=== PATIENT | female | born 1945 | race Caucasian/White ===

== ENCOUNTER 2016-08-30 12:29 | Inpatient (IN) | payer MEDICARE ==
[~2016-08-30] VITALS: Ht 167.6 cm; Wt 65.0 kg
--- NOTE | ~2016-08-30 | HEMODYNAMI ---
PATIENT:SANDRA SCOTT MEDICAL RECORD: [id number] : 45 [id number] ADMISSION DATE: 08/31/16 Generatedon:09/05/201613:26 Patient name: SANDRA SCOTT Patient #: [id number] : 1945 Date of study: 09/05/2016 Page: Of Hemodynamic Procedure Report Patient Data Patient Demographics Procedure consent was obtained First Name: SANDRA Gender: Female Last Name: SONIA : 1945 [facility] Initial: L Age: 70 year(s) Patient #: [id number] Race: Unknown SSN: [id number] Additional ID: [id number] Contact details [address]: [address] [place] [address] State: [place] City: [place] Zip code: [address] Admission Admission Data Admission Date: 08/31/2016 Admission Time: 16:13 Arrival Date: 09/05/2016 Arrival Time: 0:00 Admit Source: Other Insurance Payor: Medicare Room #: D.2130 Height (in.): 65.75 BSA: 1.73 (m2) Height (cm.): 167 BMI: 23.31 (kg/m2) Weight (lbs.): 143.3 Weight (kg.): 65 Lab Results Lab Result Date: 09/05/2016 Lab Result Time: 0:00 Biochemistry Name Units Result Min Max BUN mg/dl 20 --(----)*- 7 18 Creatinine mg/dl 0.8 --(-*--)-- 0.6 1.3 CBC Name Units Result Min Max Hemoglobin g/dl 11.5 *-(----)-- 13.5 17.5 Procedure Procedure Types Cath Procedure Diagnostic Procedure [facility] w/Coronaries Miscellaneous Procedures Procedure Description Procedure Date Procedure Date: 09/05/2016 Procedure Start Time: 13:01 Procedure End Time: 13:25 Procedure Staff Name Function Jaime Chavez MD Performing Physician Awa Leyva RN Nurse Karol Pablo RT Monitor Opal Man RT Scrub Nelson Mcbride [facility] Consultant Procedure Data Cath Procedure Fluoroscopy Diagnostic fluoroscopy Total fluoroscopy Time: 4.3 time: 4.3 min min Diagnostic fluoroscopy Total fluoroscopy dose: 209 dose: 209 mGy mGy Contrast Material Contrast Material Type Amount (ml) Isovue 300 88 Entry Location Entry Primary Successful Side Size Upsize Upsize Entry Closure Succes sful Closure Location (Fr) 1 (Fr) 2 (Fr) Remarks Device Remarks Femoral Right 5 Fr 6 Fr Vascade artery Short Closure System Estimated blood loss: 10 ml Diagnostic catheters Device Type Used For End Catheter Placement Cordis 5Fr Pigtail Procedure Catheter (MP) Cordis 5Fr JL 4.0 Procedure Catheter (MP) Cordis 5Fr 3DRC Catheter Procedure (MP) Procedure Complications No complications Procedure Medications Medication Administration Route Dosage Oxygen NC 2 l/min Heparin Flush Bag added to field 2 bags (1000units/500ml NS) Lidocaine 2% added to field 20 Solumedrol I.V. 125 mg Fentanyl I.V. 50 mcg Versed I.V. 1 mg Heparin Bolus I.V. 4000 units Hemodynamics Rest BSA: 1.73 (m2) HGB: 11.5 (g/dl) O2 Consumption: Estimated: 169.44 (ml/min) O2 Co nsumption indexed: Estimated:97.94 (ml/min/m) Heart Rate: 85 (bpm) Snapshots Pre Cath Intra NCS Post Cath Vital Signs Time Heart Resp SPO2 NIBP (mmHg) Rhythm Pain Sedation Rate (ipm) (%) Status Level (bpm) 12:48:25 82 18 95 166/92(140) NSR 0 (11) 10(A) , No pain 12:53:01 82 16 95 177/94(137) NSR 0 (11) 10(A) , No pain 12:57:44 80 16 96 161/86(123) NSR 0 (11) 9(A) , No pain 13:02:21 75 18 96 150/76(122) NSR 0 (11) 9(A) , No pain 13:06:53 73 17 95 145/70(129) NSR 0 (11) 9(A) , No pain 13:11:28 55 18 95 136/63(102) NSR 0 (11) 9(A) , No pain 13:15:56 52 17 95 124/60(107) NSR 0 (11) 9(A) , No pain 13:20:20 61 20 96 124/71(106) NSR 0 (11) 9(A) , No pain 13:24:46 78 21 137/72(109) NSR 0 (11) 9(A) , No pain Medications Time Medication Route Dose Verified Delivered Reason Notes Effectiveness by by 12:57:00 Oxygen NC 2 Awa Awa used for l/min Leyva Leyva warper tender RN 12:57:08 Heparin Flush added 2 Awa Awa used for Bag to bags Leyva Leyva procedure (1000units/500ml field RN RN NS) 12:57:19 Lidocaine 2% added 20ml Awa Awa used for to vial Leyva Leyva procedure field RN RN 12:57:30 Solumedrol I.V. 125 Awa Awa Per physician mg Gordon Leyva RN RN 13:01:36 Fentanyl I.V. 50 Awa Awa for sedation mcg Gordon Leyva RN RN 13:01:41 Versed I.V. 1 mg Awa Awa for sedation Leyva Leyva RN RN 13:08:36 Heparin Bolus I.V. 4000 Awa Awa for units Leyva Leyva anticoagulation RN agricultural services director Log Time Note 12:23:40 Nelson Mcbride RT(R) sent for patient. Start room use. 12:23:41 Time tracking: Regular hours 12:23:45 Plan of Care:Hemodynamics will remain stable., Cardiac rhythm will remain stable., Comfort level will be maintained., Respiratory function will remain adequate., Patient/ family verbilizes understanding of procedure., Procedure tolerated without complication., Recovers from procedure without complications.. 12:32:45 Lab Result : Creatinine 0.8 mg/dl 12:32:45 Lab Result : BUN 20 mg/dl 12:32:45 Lab Result : Hemoglobin 11.5 g/dl 12:33:52 Patient Height : 167 inches 12:34:04 Patient Weight : 65 lbs 12:34:14 Admit Source: Other 12:34:18 Arrival Date: 09/05/2016 12:00:00 AM 12:34:32 Insurance Payor : Medicare 12:34:57 Procedure type changed to Cath procedure, Diagnostic procedure, LHC, LHC w/Coronaries, Miscellaneous Procedures 12:39:21 Patient received from Med II to CCL 3 Alert and oriented. Tansferred to table in Supine position. 12:39:23 Warm blankets applied, and jacquelyn hugger turned on for patient comfort. 12:39:23 Correct patient and procedure confirmed by team. 12:39:36 H&P Date Dictated: 09/04/2016 Within 30 days and on chart.. 12:39:41 Pre-procedure instructions explained to patient. 12:39:43 Pre-op teaching completed and patient verbalized understanding. 12:39:44 Family in waiting room. 12:39:47 Patient NPO since Midnight. 12:39:52 Is the patient allergic to Iodine/contrast media? Yes. 12:39:53 Was the patient premedicated? Yes 12:46:54 Signed procedure consent form obtained from patient. 12:46:55 ECG and BP/O2 sat monitors applied to patient. 12:46:55 Vital chart was started 12:47:00 Baseline sample Acquired. 12:47:05 Rhythm: sinus rhythm 12:47:06 Full Disclosure recording started 12:47:10 Is patient on blood thinner?Yes 12:47:17 ACC The patient was administered the following blood thiners within the last 24 hours: ACCPlavix 12:47:24 Patient diabetic? Yes. 12:47:27 If diabetic: On Metformin? Unknown 12:47:29 Patient not . Patient is over age 55. 12:47:33 Previous problem with sedation/anesthesia? No ? 12:47:34 Snore? Yes 12:47:35 Sleep apnea? No 12:47:36 Deviated septum? No 12:47:37 Opens mouth fully? Yes 12:47:39 Sticks out tongue? Yes 12:47:42 Airway obstruction? No ? 12:47:45 Dentures? Yes OUT 12:47:50 Pre procedure: right dorsailis pedis pulse Doppler 12:48:01 Patient pain scale 0/10 ?. 12:52:04 IV patent on arrival in left forearm with 0.9% NaCl at KVO. 12:52:08 Lab results completed and on chart. 12:52:13 Bilateral groins area was prepped with chlora-prep and draped in sterile fashion 12:52:14 Alarms reviewed by R. N. 12:52:15 Sharps counted by scrub and verified by R.N. ::18 --------ALL STOP TIME OUT------ ::18 Final Timeout: patient, procedure, and site verified with staff and physician. All members of the team are in agreement. 12:52:20 Bilateral groins site verified by team. 12::25 Physical assessment completed. ASA score P 2 - A patient with mild systemic disease as per Jaime Chavez MD. 12:52:28 Sedation plan: IV Moderate Sedation Versed, Fentanyl 12:52:40 Use device set Femoral Dx 12:52:42 Tegaderm 4 x 4 opened to sterile field. 12:52:44 Acist Manifold opened to sterile field. 12:52:45 Acist Hand Control opened to sterile field. 12:52:46 Acist Syringe opened to sterile field. 12:52:46 Bag Decanter opened to sterile field. 12:52:46 Medline Cath Pack opened to sterile field. 12:52:47 Terumo 5Fr Wheelwright Sheath opened to sterile field. 12:52:47 St Shakeel 260cm J .035 wire opened to sterile field. 12:52:49 Diagnostic Infinity 5Fr Multipack catheter opened to sterile field. 12:57:00 Oxygen 2 l/min NC was given by Awa Leyva RN; used for procedure; 12:57:08 Heparin Flush Bag (1000units/500ml NS) 2 bags added to field was given by Awa Leyva RN; used for procedure; 12:57:19 Lidocaine 2% 20ml vial added to field was given by Awa Leyva RN; used for procedure; 12:57:30 Solumedrol 125 mg I.V. was given by Awa Leyva RN; Per physician; 13:00:26 Zero performed for pressure channel P1 13:01:36 Fentanyl 50 mcg I.V. was given by Awa Leyva RN; for sedation; 13:01:41 Versed 1 mg I.V. was given by Awa Leyva RN; for sedation; 13:01:47 Procedure started. 13:01:59 Local anesthetic to right femoral artery with Lidocaine 2% by Jaime Chavez MD.INITIAL ACCESS ONLY 13:02:11 A 5 Fr sheath was inserted into the Right Femoral artery 13:02:47 A Cordis 5Fr Pigtail Catheter (MP) was advanced over the wire and used for Procedure. 13:02:50 LV gram done using WEAVER 13:03:09 EF : 60 % 13:04:00 LCA angiography performed. 13:04:01 Bilateral illiacs angiography performed. 13:04:21 Catheter removed. 13:04:29 A Cordis 5Fr JL 4.0 Catheter (MP) was advanced over the wire and used for Procedure. 13:05:05 Catheter removed. 13:05:15 A Cordis 5Fr 3DRC Catheter (MP) was advanced over the wire and used for Procedure. 13:06:20 RCA angiography performed. 13:06:58 Catheter removed. 13:07:03 Terumo 6Fr Wheelwright Sheath opened to sterile field. 13:07:04 Simmons Whisper J 300cm 0.014 guide wire opened to sterile field. 13:07:05 Message[employer]Com[employer] International Inflation Kit opened to sterile field. 13:07:17 Sheath upsized to a 6 Fr Short. 13:08:36 Heparin Bolus 4000 units I.V. was given by Awa Leyva RN; for anticoagulation; 13:08:57 Medtronic Launcher 6Fr EBU 4.0 guide catheter opened to sterile field. 13:09:10 6 Fr EBU 4 guide catheter was inserted over the wire 13:09:18 Catheter removed. unable to cannulate vessel. 13:09:37 Medtronic Launcher 6Fr EBU 3.5 guide catheter opened to sterile field. 13:10:05 Whisper wire advanced. 13:10:07 Wire advanced across lesion. 13:11:17 Inflation Number: 1 A Medtronic Integrity 3.5 X 18 stent was prepped and advanced across the Mid CX. The stent was deployed at 13 ALEAH for 0:10 (min:sec). 13:12:00 Vascade 6/7 Fr Closure Device opened to sterile field. 13:12:09 Stent catheter was removed intact over wire. 13:12:09 Wire removed. 13:12:10 Guide catheter removed. 13:12:23 Sheath removed intact; hemostasis achieved with Vascade Closure System to the Right Femoral artery. 13:14:26 Procedure ended.(Physican Out) 13:15:09 Fluoroscopy time 04.30 minutes. 13:15:14 Fluoroscopy dose: 209 mGy 13:15:14 Flurop Dose total: 209 13:15:19 Contrast amount:Isovue 300 88ml. 13:15:21 Sharps counted by scrub and verified by R.N. 13:15:26 Insertion/operative site no bleeding no hematoma. 13:15:29 Post right femoral artery:stable 13:15:31 Post Procedure Pulses reassessed and unchanged 13:15:40 Post-procedure physical assessment completed. ASA score P 2 - A patient with mild systemic disease as per Jaime Chavez MD. 13:16:06 Post procedure rhythm: sinus bradycardia 13:16:09 Estimated blood loss: 10 ml 13:16:10 Post procedure instruction explained to patient.Patient verbalizes understanding. 13:16:12 Patient needs reinforcement of post procedure teaching. 13:18:28 Procedure and supply charges have been captured, reviewed, submitted and are correct. 13:24:59 Procedure Complication : No complications 13:25:02 Vital chart was stopped 13:25:03 See physician's report for complete and final results. 13:25:07 Report given to [facility]. 13:25:12 Patient transfered to [facility] with Bed. 13:25:14 Procedure ended. 13:25:14 Full Disclosure recording stopped 13:25:20 End room use (Document Last) 13:25:30 Femstop placed over the right femoral artery at 120 mmHg. Hemostasis achieved. Intervention Summary Intervention Notes Time ActionType Lesion and Equipment Action# Pressure Duration Attributes Used 13:11:17 Place stent Mid CX Medtronic 1 13 00:10 Integrity 3.5 X 18 stent Device Usage Item Name Manufacture Quantity Catalog Hospital Part Current Minima l Lot# / Number Charge Number Stock Stock Serial# Code Tegaderm 4 1 [id number] 156751 5 x 4 Acist Acist 1 54741 978505 223166 660141 5 Manifold Medical Systems Inc Acist Hand Acist 1 07266 024412 859264 792821 5 Control Medical Systems Inc Acist Acist 1 83128 193271 321807 986948 20 Syringe Medical Systems Inc Bag Microtek 1 2002S 189657 57062 656290 5 Thomas [employer]. Medline Cardinal 1 [id number] 444793 07978 834200 5 D-Share Terumo 5Fr Terumo 1 [id number] 531685 034370 628733 [address] Shakeel 1 628939 761171 831262 767047 30 260cm J .035 wire Diagnostic Cardinal 1 [id number] 166122 84427 590674 30 Infinity Health 5Fr Multipack catheter Cordis 5Fr Cardinal 1 152051 5 Pigtail Health Catheter (MP) Cordis 5Fr Cardinal 1 [id number] 5 JL 4.0 Health Catheter (MP) Cordis 5Fr Cardinal 1 640533 5 3DRC Health Catheter (MP) Terumo 6Fr Terumo 1 DCS100 512082 490488 491166 40 Wheelwright Sheath Simmons Simmons 1 [id number] 292570 626769 047313 5 Whisper J Vascular 300cm 0.014 guide wire [facility] 1 [id number] 715748 196646 287892 15 [employer] Medical Inflation Kit Medtronic Medtronic 1 [id number] 674863 55641 656744 1 Launcher 6Fr EBU 4.0 guide catheter Medtronic Medtronic 1 [id number] 746235 00463 969525 3 Launcher 6Fr EBU 3.5 guide catheter Medtronic Medtronic 1 [id number] 885293 984005 6 [id number] Integrity 3.5 X 18 stent Vascade 6/7 Cardiva 1 [id number] 157387 204234 096534 5 Fr Closure Medical, Device Inc. Signature Audit [place] Stage Time Signature Unsigned Intra-Procedure 09/05/2016 Opal Man 1:26:23 PM RT(R) Signatures Monitor : Karol Pablo RT Signature : Date : Time : [place] [id number] [place] [address]
--- NOTE | ~2016-08-30 | HEMODYNAMI ---
PATIENT:SANDRA SCOTT MEDICAL RECORD: [id number] : 45 [id number] ADMISSION DATE: 08/31/16 Generatedon:09/06/201611:32 Patient name: SANDRA SCOTT Patient #: [id number] : 1945 Date of study: 09/06/2016 Page: Of Hemodynamic Procedure Report Patient Data Patient Demographics Procedure consent was obtained First Name: SANDRA Gender: Female Last Name: SONIA : 1945 [facility] Initial: L Age: 70 year(s) Patient #: [id number] Race: Unknown SSN: [id number] Additional ID: [id number] Contact details Address: [address] [place] [address] State: [place] City: [place] Zip code: [address] Admission Admission Data Admission Date: 08/31/2016 Admission Time: 16:13 Arrival Date: 09/05/2016 Arrival Time: 0:00 Admit Source: Other Insurance Payor: Medicare Room #: D.2130 Height (in.): 65.75 BSA: 1.73 (m2) Height (cm.): 167 BMI: 23.31 (kg/m2) Weight (lbs.): 143.3 Weight (kg.): 65 Lab Results Lab Result Date: 09/06/2016 Lab Result Time: 4:56 Biochemistry Name Units Result Min Max BUN mg/dl 21 --(----)-* 7 18 Creatinine mg/dl 0.7 --(*---)-- 0.6 1.3 CBC Name Units Result Min Max Hematocrit % 33.7 *-(----)-- 42 54 Hemoglobin g/dl 10.9 *-(----)-- 13.5 17.5 Procedure Procedure Types Cath Procedure PCI Procedure Coronary Stent Initial Miscellaneous Procedures Moderate Sedation up to 15 minutes Procedure Description Procedure Date Procedure Date: 09/06/2016 Procedure Start Time: 11:17 Procedure End Time: 11:31 Procedure Staff Name Function Jaime Chavez MD Performing Physician Nic Lino RT Scrub Fredrick Juarez RN Nurse Kesha Syed RT Monitor Procedure Data Cath Procedure Fluoroscopy Diagnostic fluoroscopy Total fluoroscopy dose: 142 dose: 142 mGy mGy Contrast Material Contrast Material Type Amount (ml) Isovue 300 32 Entry Location Entry Primary Successful Side Size Upsize Upsize Entry Closure Succes sful Closure Location (Fr) 1 (Fr) 2 (Fr) Remarks Device Remarks Femoral Left 6 Fr Vascade artery Short Closure System Estimated blood loss: 10 ml Procedure Complications No complications Procedure Medications Medication Administration Route Dosage Oxygen NC 3 l/min Lidocaine 2% added to field 20 Heparin Flush Bag added to field 2 bags (1000units/500ml NS) 0.9% NaCl I.V. 100 ml/hr Versed I.V. 1 mg Fentanyl I.V. 50 mcg Heparin Bolus I.V. 4000 units Hemodynamics Rest BSA: 1.73 (m2) O2 Consumption: Estimated: 235.28 (ml/min) O2 Consumption indexed : Estimated:136 (ml/min/m) Pre Cath Intra NCS Post Cath Vital Signs Time Heart Resp SPO2 etCO2 [id number] NIBP (mmHg) Rhythm Pain Sedation Rate (ipm) (%) (mmHg) (mmHg) Status Level (bpm) 11:08:47 86 27 98 0 0 183/89(140) NSR 0 (11) 10(A) , No pain 11:13:11 88 20 97 0 0 181/90(142) NSR 0 (11) 10(A) , No pain 11:17:38 83 18 98 0 0 179/88(145) NSR 0 (11) 9(A) , No pain 11:22:04 83 16 98 0 0 170/83(134) NSR 0 (11) 9(A) , No pain 11:26:26 97 22 96 0 0 166/78(127) NSR 0 (11) 9(A) , No pain 11:30:46 83 25 96 0 0 157/83(128) NSR 0 (11) 10(A) , No pain Medications Time Medication Route Dose Verified Delivered Reason Notes Effectiveness by by 11:11:02 Oxygen NC 3 Jaime Alcala used for l/min Scott Juarez marine engineering technicians 11:11:09 Lidocaine 2% added 20ml Jaime Sandoval for local to vial Scott Chavez MD anesthetic field 11:11:14 Heparin Flush added 2 Jaime Sandoval used for Bag to bags Scott Chavez MD procedure (1000units/500ml field NS) 11:11:23 0.9% NaCl I.V. 100 Jaime Duenaspatricia Per physician ml/hr Scott Juarez RN 11:14:47 Versed I.V. 1 mg Jaime Alcala for sedation Scott Juarez RN 11:14:54 Fentanyl I.V. 50 Jaime Buffie for sedation mcg Scott Jaurez RN 11:19:48 Heparin Bolus I.V. 4000 Jaime Duenasie for verifi ed units Scott Juarez RN anticoagulation with dr chavez Procedure Log Time Note 10:45:55 Informed consent obtained and on chart 10:46:23 Patient Weight : 143.3 lbs 10:46:23 Patient Height : 65.75 inches 10:46:24 Fredrick Juarez RN sent for patient. Start room use. 10:46:25 Time tracking: Regular hours 10:46:29 Plan of Care:Hemodynamics will remain stable., Cardiac rhythm will remain stable., Comfort level will be maintained., Respiratory function will remain adequate., Patient/ family verbilizes understanding of procedure., Procedure tolerated without complication., Recovers from procedure without complications.. 10:50:28 Lab Result : BUN 21 mg/dl 10:50:28 Lab Result : Hematocrit 33.7 % 10:50:28 Lab Result : Hemoglobin 10.9 g/dl 10:50:28 Lab Result : Creatinine 0.7 mg/dl 10:50:47 H&P Date Dictated: 09/05/2016 Within 30 days and on chart.. 10:56:36 Patient received from PCU to CCL 1 Alert and oriented. Tansferred to table in Supine position. 10:56:37 Warm blankets applied, and jacquelyn hugger turned on for patient comfort. 10:56:38 Correct patient and procedure confirmed by team. 11:07:32 ECG and BP/O2 sat monitors applied to patient. 11:07:32 Vital chart was started 11:07:36 Rhythm: sinus rhythm 11:07:37 Full Disclosure recording started 11:07:40 Pre-op teaching completed and patient verbalized understanding. 11:07:41 Pre-procedure instructions explained to patient. 11:07:44 Family in patients room. 11:07:46 Patient NPO since Midnight. 11:07:58 Is the patient allergic to Iodine/contrast media? Yes. 11:07:59 Was the patient premedicated? Yes 11:08:01 Is patient on blood thinner?Yes 11:08:04 ACC The patient was administered the following blood thiners within the last 24 hours: ACCPlavix 11:08:37 Patient diabetic? Yes. 11:08:46 If diabetic: On Metformin? No 11:09:04 Previous problem with sedation/anesthesia? No ? 11:09:06 Snore? Yes 11:09:07 Sleep apnea? No 11:09:08 Deviated septum? No 11:09:10 Opens mouth fully? Yes 11:09:10 Sticks out tongue? Yes 11:09:12 Airway obstruction? No ? 11:09:14 Dentures? No ? 11:09:19 Pre procedure: left dorsailis pedis pulse Doppler 11:09:23 Patient pain scale 0/10 ?. 11:09:30 IV patent on arrival in right forearm with 0.9% NaCl at [facility]. 11:09:35 Lab results completed and on chart. 11:09:38 Left groin area was prepped with chlora-prep and draped in sterile fashion 11:09:39 Alarms reviewed by R. N. 11:09:39 Sharps counted by scrub and verified by R.N. 11:09:52 Use device set Femoral PCI 11:09:53 Acist Syringe opened to sterile field. 11:09:54 Acist Hand Control opened to sterile field. 11:09:54 Bag Decanter opened to sterile field. 11:09:55 Medline Cath Pack opened to sterile field. 11:09:55 Terumo 6Fr [place] Sheath opened to sterile field. 11:09:56 St Shakeel 260cm J .035 wire opened to sterile field. 11:09:56 Merit BasixCompak Inflation Kit opened to sterile field. 11:09:57 Acist Manifold opened to sterile field. 11:09:57 Tegaderm 4 x 4 opened to sterile field. 11:11:02 Oxygen 3 l/min NC was given by Fredrick Juarez RN; used for procedure; 11:11:09 Lidocaine 2% 20ml vial added to field was given by Jaime Chavez MD; for local anesthetic; 11:11:14 Heparin Flush Bag (1000units/500ml NS) 2 bags added to field was given by Jaime Chavez MD; used for procedure; 11:11:23 0.9% NaCl 100 ml/hr I.V. was given by Fredrick Juarez RN; Per physician; 11:11:37 Final Timeout: patient, procedure, and site verified with staff and physician. All members of the team are in agreement. 11:11:39 Left groin site verified by team. 11:11:41 Physical assessment completed. ASA score P 3 - A patient with severe systemic disease as per Jaime Chavez MD. 11:11:44 Sedation plan: IV Moderate Sedation Versed, Fentanyl 11:14:47 Versed 1 mg I.V. was given by Fredrick Juarez RN; for sedation; 11:14:54 Fentanyl 50 mcg I.V. was given by Fredrick Juarez RN; for sedation; 11:15:03 Procedure started. 11:17:25 Local anesthetic to left femerol artery with Lidocaine 2% by Jaime Chavez MD.INITIAL ACCESS ONLY 11:18:35 A 6 Fr Short sheath was inserted into the Left Femoral artery 11:19:39 6 Fr EBU 3.0 guide catheter was inserted over the wire 11:19:47 Medtronic Launcher 6Fr EBU 3.0 guide catheter opened to sterile field. 11:19:48 Heparin Bolus 4000 units I.V. was given by Fredrick Juarez RN; for anticoagulation; verified with dr chavez 11:20:47 Whisper wire advanced. 11:23:38 Inflation Number: 1 A Medtronic Integrity 2.5 X 26 stent was prepped and advanced across the Prox LAD. The stent was deployed at 13 ALEAH for 0:04 (min:sec). 11:24:19 Stent catheter was removed intact over wire. 11:24:20 Wire removed. 11:24:20 Guide catheter removed. 11:24:28 Sheath removed intact; hemostasis achieved with Vascade Closure System to the Left Femoral artery. 11:24:36 Vascade 6/7 Fr Closure Device opened to sterile field. 11:24:46 Procedure ended.(Physican Out) 11:26:57 Flurop Dose total: 142 11:26:57 Fluoroscopy dose: 142 mGy 11:27:01 Contrast amount:Isovue 300 32ml. 11:27:03 Sharps counted by scrub and verified by R.N. 11:27:06 Insertion/operative site no bleeding no hematoma. 11:27:09 Post-op/insertion site Left Femoral artery dressed using a 4 x 4 and Tegaderm. 11:27:19 Post left femerol artery:stable, clean and dry 11:27:20 Post Procedure Pulses reassessed and unchanged 11:27:24 Post-procedure physical assessment completed. ASA score P 3 - A patient with severe systemic disease as per Jaime Chavez MD. 11:27:26 Post procedure rhythm: unchanged. 11:27:29 Estimated blood loss: 10 ml 11::34 Post procedure instruction explained to patient.Patient verbalizes understanding. 11:27:35 Patient needs reinforcement of post procedure teaching. 11:27:43 Procedure type changed to Cath procedure, PCI procedure, Coronary Stent Initial, Miscellaneous Procedures, Moderate Sedation up to 15 minutes 11:27:52 Procedure Complication : No complications 11:27:56 See physician's report for complete and final results. 11:28:39 Simmons Whisper J 300cm 0.014 guide wire opened to sterile field. 11:28:56 Procedure and supply charges have been captured, reviewed, submitted and are correct. 11:29:00 Report given to PCU. 11:31:34 Vital chart was stopped 11::38 Patient transfered to PCU with Bed. 11:31:45 Procedure ended. 11:31:45 Full Disclosure recording stopped 11::51 End room use (Document Last) Intervention Summary Intervention Notes Time ActionType Lesion and Equipment Action# Pressure Duration Attributes Used 11:23:38 Place stent Prox LAD Medtronic 1 13 00:04 Integrity 2.5 X 26 stent Device Usage Item Name Manufacture Quantity Catalog Hospital Part Current Minima l Lot# / Number Charge Number Stock Stock Serial# Code Acist Acist 1 81842 499591 490949 980977 20 Syringe Medical Systems Inc Acist Hand Acist 1 74003 999455 693186 698441 5 Control Medical Systems Inc Bag Microtek 1 2002S 823400 45907 750197 5 Segterra (InsideTracker). Medline Cardinal 1 [id number] 581033 01371 148493 5 Cath Pack Health Terumo 6Fr Terumo 1 [id number] 943977 246012 693651 [address] St Shakeel 1 407047 912478 978254 999907 30 260cm J .035 wire Merit Merit 1 [id number] 393750 328715 321557 15 eASIC Medical Inflation Kit Acist Acist 1 79312 181806 639622 492057 5 Gopeers Medical Systems Inc Tegaderm 4 3M 1 1626W 060709 045124 047669 5 x 4 Medtronic Medtronic 1 [id number] 651796 67048 042714 0 Launcher 6Fr EBU 3.0 guide catheter Medtronic Medtronic 1 [id number] 363357 364511 760246 4 [id number] Integrity 2.5 X 26 stent Vascade 12/20 Cardiva 1 [id number] 039881 415899 249747 5 Fr Closure Medical, Device Inc. Simmons Simmons 1 [id number] 561371 643387 542237 5 isper J Vascular 300cm 0.014 guide wire Signature Audit Hawkins Stage Time Signature Unsigned Intra-Procedure 09/06/2016 Kesha 11:32:01 AM Counts RT(R) Signatures Monitor : Kesha Signature : Counts RT Date : Time : [id number] [place] [address]
[~2016-08-30 12:29] MED LIST: ATROVENT 0.02%2.5 ML UPD; BENICAR40 MG PO; BUPRENORPHI0.3 MG/ML IV; CARDIZEM CD180 MG PO; CARDIZEM60 MG PO; CARTIA XT180 MG PO; CATAPRES0.2 MG PO; CIPRO500 MG PO; CORDARONE200 MG PO; DAKIN'S 0.125%480 ML TP; DEXTROSE 50%/WA50 ML IV; DIFLUCAN100 MG PO; FELODIPINE ER10 MG PO; GLUCAGON1 MG/KIT IM; GLUCAGON1 MG/KIT SQ; HUMALOG 30100 UNITS/ SC; HUMULIN N100 U/ML SC; INSTA-GLUCOSE31 GM PO; INVANZ1 G/VIAL IV; K-DUR20 MEQ PO; KEFLEX500 MG PO; KLOR-CON M2020 MEQ PO; LANTUS SOL100 UNIT/1 SQ; LASIX80 MG PO; LEVAQUIN 5500 MG/100 IV; LOPRESSOR50 MG PO; LOVENOX40 MG/0.4 SQ; MACROBID100 MG PO; MAG-OXIDE400 MG PO; MELATONIN 3 MG1 TAB PO; MIRALAX17 GM PO; NORCO 10/325 TA1 TA1 PO; ONDANSETRON4 MG/2 M3 IV; PEDI DRI TP; PEPCID20 MG PO; POTASSIUM20 MEQ/15 PO; PRAVACHOL40 MG PO; PROTONIX 40 MG40 MG PO; SANTYL30 GM TP; SODIUM CL 0.91000 ML IV; STERAPRED 5MG 125 MG PO; TRANDATE300 MG PO; TYLENOL 325 MG325 MG PO; TYLENOL650 MG RC; XANAX1 MG PO; ZESTRIL40 MG OR; ZESTRIL40 MG PO; ZINC OXIDE 20 %30 GM TP
[2016-08-30 14:10] LABS: BASOPHILS 0.1 % (0.0-2.0); EOSINOPHILS 0 % (0-7); HEMATOCRIT 47.3 % (36.0-48.0); HEMOGLOBIN 15.8 g/dL (12-16); IMMATURE GRANULOCYTES 0.2 % (0-5); LYMPHOCYTES 3.6 % (15-50); MCH 31.7 pg (26.0-34.0); MCHC 33.4 g/dL (31.0-37.0); MEAN PLATELET VOLUME 11.7 fL (7.4-10.4); MONOCYTES 9.8 % (2-11); NEUTROPHILS 86.3 % (40-80); PLATELET COUNT 264 10x3/uL (130-400); RBC 4.98 10x6/uL (4.00-5.40); RDW 12.8 % (11.5-14.5); WBC 18.4 10x3/uL (4.8-10.8)
[2016-08-30 14:26] LABS: ALBUMIN 3.9 g/dL (3.4-5.0); ANION GAP 20.5 mmol/L (8-16); BILIRUBIN - TOTAL 0.54 mg/dL (0.2-1.3); CALCIUM 9.3 mg/dL (8.5-10.1); CARBON DIOXIDE 23.1 mmol/L (21.0-32.0); CREATININE - SERUM 1.4 mg/dL (0.6-1.3); POTASSIUM - SERUM 3.6 mmol/L (3.5-5.1); PROTEIN - SERUM 7.7 g/dL (6.4-8.2)
[2016-08-30 14:53] LABS: APPEARANCE HAZY (CLEAR); BILIRUBIN NEGATIVE (NEGATIVE); COLOR DK YELLOW (YELLOW); GLUCOSE NEGATIVE (NEGATIVE); KETONE SMALL mg/dL (NEGATIVE); LEUKOCYTE ESTERASE TRACE (NEGATIVE); NITRITE NEGATIVE (NEGATIVE); PROTEIN 1+ mg/dL (NEGATIVE); SPECIFIC GRAVITY 1.005 (1.005-1.020); UROBILINOGEN NORMAL (NORMAL)
[2016-08-30 14:54] LABS: BACTERIA MANY /hpf (NONE SEEN); EPITHELIAL CELLS 0-5 /hpf (0-5); MUCUS >1+ /lpf (NONE SEEN)
[2016-08-30 17:31] LABS: CKMB 1.3 U/L (0.0-3.6); CREATINE KINASE 46 UL (21-215)
--- NOTE | 2016-08-30 18:35 | NUR ---
RECEIVED PATIENT FROM ED VIA STRETCHER ACCOMPANIED BY FAMILY. TRANSFERRED TO BED AND CLEANED OF INCONTINENT STOOL. WILL CONTINUE TO MONITOR.
--- NOTE | 2016-08-30 20:00 | NUR ---
ADMISSION ASSESSMENT COMPLETED. IV ROCEPHIN NOW UP AND INFUSING. 2ND UNIT OF LR NOW UP. CALL LIGHT IN REACH. DENIES PAIN.
[2016-08-30 20:04] VITALS: BP 193/82
--- NOTE | 2016-08-30 21:19 | NUR ---
RECIEVED CALL FROM ER MARQUIS SAYING THAT SHE NOTED PT'S LACTIC ACID HAD INCREASED FROM 3.7 TO 4.1 AND MD NEEDED TO BE NOTIFIED THAT PT'S LEVEL HAD ELEVATED AND THAT PT WAS SEPTIC. EXPLAINED TO MARQUIS THAT PT IS NOW RECIEVEING HER INITIAL ABT AND ORDERED FLUIDS. WILL NOTIFY MD IF THERE ARE ANY CHANGES. SPOKE WITH TATUM, PUTTY MIXER, ABOUT CALL FROM MARQUIS STATING TO NOTIFY MD THAT PT WAS SEPTIC. OUR RECORDS INDICATE THAT DR BAUM SAW PT AND DID HISTORY AND PHYSICAL. OKAYED BY PUTTY MIXER TO HOLD OFF CALLING MD PER REQUEST OF MARQUIS AND CONTINUE TO IMPLEMENT THE ESTABLISHED PLAN OF CARE.
[2016-08-30 23:34] LABS: CKMB 1.6 U/L (0.0-3.6); CREATINE KINASE 63 UL (21-215)
[2016-08-30 23:38] LABS: TROPONIN-I 0.063 ng/mL (0.000-0.060)
[2016-08-31] VITALS (7 sets, daily range): BP systolic 155–246; BP diastolic 73–97; Ht 167.6 cm; Wt 65.0 kg
--- NOTE | 2016-08-31 02:30 | NUR ---
BP CONTINUES TO STAY ELEVATED. SPOKE WITH PATIENT AND SHE HAS NOT HAD ANY OF HER CLONIDINE ALL DAY. PAGE TO FABIAN LOUISE APN @ 2982 PT'S SENIOR CATHETER WAS NO LONGER PATENT. REMOVED AND INSERTED NEW 18F SENIOR WITH IMMEDIATE RETURN OF YELLOW URINE. COMPLETE BED BATH GIVEN. PT PULLED OUT IV IN RIGHT HAND. SITED NEW IV TO ANOTHER SITE ON RIGHT HAND AND RESUMMED IVF OF LR BOLUS, HAVING TO SLOW IT DOWN DUE TO IV IN FINGER. IV WILL BE SALINE LOCKED WHEN THE CURRENT BAG OF LR IS COMPLETE.
[2016-08-31 06:28] LABS: BASOPHILS 0.1 % (0.0-2.0); EOSINOPHILS 0 % (0-7); HEMATOCRIT 40.3 % (36.0-48.0); HEMOGLOBIN 13.4 g/dL (12-16); IMMATURE GRANULOCYTES 0.2 % (0-5); LYMPHOCYTES 11.9 % (15-50); MCH 31.2 pg (26.0-34.0); MCHC 33.3 g/dL (31.0-37.0); MCV 93.7 fL (80.0-100.0); MEAN PLATELET VOLUME 11.7 fL (7.4-10.4); MONOCYTES 10.7 % (2-11); NEUTROPHILS 77.1 % (40-80); RDW 12.9 % (11.5-14.5)
[2016-08-31 06:32] LABS: PLATELET COUNT 193 10x3/uL (130-400); WBC 13.3 10x3/uL (4.8-10.8)
[2016-08-31 06:47] LABS: ANION GAP 13.8 mmol/L (8-16); CALCIUM 9.8 mg/dL (8.5-10.1); CARBON DIOXIDE 26.9 mmol/L (21.0-32.0); POTASSIUM - SERUM 3.7 mmol/L (3.5-5.1)
[2016-08-31 06:58] LABS: CKMB 1.2 U/L (0.0-3.6); CREATINE KINASE 56 UL (21-215); TROPONIN-I 0.062 ng/mL (0.000-0.060)
--- NOTE | 2016-08-31 07:15 | NUR ---
PT SITTING UP IN BED DENEIS NEEDS WILL CONT TO MONITOR
[2016-08-31 07:21] LABS: MAGNESIUM - SERUM 1.8 mg/dL (1.8-2.4); PHOSPHOROUS 2.4 mg/dL (2.5-4.9)
--- NOTE | 2016-08-31 08:30 | NUR ---
PT WITH SOB AND LEAD ORACLE DEVELOPER SAYS PT IS IN UNCON AFIB 150S. PT CO PALPITATIONS. DR GONZALEZ/BOBBY ORDERED CARDIZEM AND LOPRESSOR FOR PT. GIVEN THESE MEDS. PAGED FABIAN PUGA. PT HAS CRACKLES THROUGHOUT AND SOUNDS VERY CONGESTED. FABIAN CALLED BACK AND SAID TO ORDER DUONEBS. I LET HER KNOW ABOUT PT LACTIC ACID LEVEL OF 4.1, UNCON AFIB, AND RESP STATUS. I ORDERED DUONEBS. WILL CONT TO MONITOR PT STATUS.
--- NOTE | 2016-08-31 09:37 | NUR ---
IV access-20 gauge accucath inserted in left upper arm for IV access. Jessica Ramirez RN
--- NOTE | 2016-08-31 10:42 | NUR ---
PT HR STILL IN UNCON AFIB 130S. BOLUS DIDNT HELP MARINA GONZALEZ AGAIN. HE GAVE OK TO START DRIP.
--- NOTE | 2016-08-31 11:37 | NUR ---
PT NOW IN CONTROLLED AFIB. STILL BOUNCING INTO UNCONTROLLED. BUT RATE IS MUCH BETTER CONTROLLED.
--- NOTE | 2016-08-31 12:53 | NUR ---
PT STILL IN CONTROLLED AFIB 80S-90S. PT DENIES NEEDS.
--- NOTE | 2016-08-31 16:29 | NUR ---
PT SITTING UP IN BED WITH AND VISITORS AT BEDSIDE. DENIES NEEDS WILL CONT TO MONITOR.
--- NOTE | 2016-08-31 19:42 | NUR ---
PORCELAIN ENAMEL INSTALLER AT BEDSIDE TO OBTAIN VITALS, CALL LIGHT IN REACH. WILL CONTINUE WITH PLAN OF CARE.
--- NOTE | 2016-08-31 20:06 | NUR ---
RESTING IN BED. ALERT ORIENTED CONVERSANT. DENIES NEEDS. AT BEDSIDE. NO ACUTE DISTRESS NOTED.
[2016-09-01] VITALS: BP 197/94
[2016-09-01 04:00] VITALS: BP 199/84
[2016-09-01 05:20] LABS: BASOPHILS 0.2 % (0.0-2.0); EOSINOPHILS 0.1 % (0-7); HEMATOCRIT 39.6 % (36.0-48.0); IMMATURE GRANULOCYTES 0.4 % (0-5); LYMPHOCYTES 11.2 % (15-50); MCHC 32.8 g/dL (31.0-37.0); MCV 94.3 fL (80.0-100.0); MEAN PLATELET VOLUME 11.4 fL (7.4-10.4); MONOCYTES 8.2 % (2-11); NEUTROPHILS 79.9 % (40-80); PLATELET COUNT 181 10x3/uL (130-400); RDW 12.8 % (11.5-14.5); WBC 12.7 10x3/uL (4.8-10.8)
[2016-09-01 05:50] LABS: CALCIUM 10.1 mg/dL (8.5-10.1); CARBON DIOXIDE 25.2 mmol/L (21.0-32.0); CREATININE - SERUM 0.9 mg/dL (0.6-1.3); MAGNESIUM - SERUM 1.8 mg/dL (1.8-2.4); PHOSPHOROUS 2.6 mg/dL (2.5-4.9); POTASSIUM - SERUM 3.2 mmol/L (3.5-5.1)
--- NOTE | 2016-09-01 07:29 | NUR ---
PT SITTING UP IN BED RECEIVING BREATHING TX WILL CONT TO MONITOR.
[2016-09-01 07:39] LABS: CHOL - HDL RATIO 2.4 ratio (2.3-4.1)
[2016-09-01 10:00] VITALS: BP 198/75
[2016-09-01 11:41] VITALS: BP 134/71
--- NOTE | 2016-09-01 12:37 | NUR ---
CALLED TO PT ROOM BECAUSE PT PIV OCCLUDED. WHEN I CHECKED PT LEFT UPPER FA SITE IT WAS VERY BOGGY. SITE NOT INDURATED, RED. I ASKED PT IF IT HURT SHE SAID YES. I ASKED HER WHY SHE DIDNT CO OF SITE HURTING SOONER SHE REPLIED "I DONT KNOW"... IMMEDIATELY UNHOOKED PIV FLUIDS AND DC PIV WITH CATHETER TIP INTACT AND APPLIED HEAT. PT STILL HAS R INDEX FINGER PIV THAT IS STILL PATENT. SWITCHED FLUIDS TO THIS PIV. I AGAIN EDUCATED PT ON IMPORTANCE OF LETTING ME KNOW WHEN AND IF HER IV EVER HURTS HER AGAIN SO I CAN MAKE SURE IT IS STILL PATENT.
--- NOTE | 2016-09-01 13:55 | NUR ---
ORDER FOR SPECIALTY MATRESS PLACED. CALLED [facility] [employer]. FAXED ORDER DOWN. WILL WAIT FOR THEM TO BRING IT UP
--- NOTE | 2016-09-01 14:51 | NUR ---
PUT PT ON FIRST STEP OVERLAY BED
[2016-09-01 15:43] VITALS: BP 157/77
--- NOTE | 2016-09-01 16:51 | NUR ---
Patient Name: SANDRA SCOTT Admission Status: ER Accout number: [id number] Admission Date: 08-31-2016 : 1945 Admission Diagnosis:BRONCHITIS, NOT SPECIFIED ACUTE OR CHRONIC Attending: BULMARO Current LOS: 1 Anticipated DC Date: Planned Disposition: Home with Home Health Primary Insurance: [facility] PLANNED EXTERNAL PROVIDER: [facility] Discharge Planning Comments: * Is the patient Alert and Oriented? Yes 0 * How many steps to enter\exit or inside your home? RAMP 0 * PCP DR. BAUM 0 * Pharmacy [facility] [address] 0 * Preadmission Environment Home with Family 0 * ADLs Partial Dependent 0 * Partial ADLs (Assistance needed) Bathing Medication Management Transfers 0 * Equipment [facility] Hospital Bed Other Shower Chair Trapeze Wheelchair 0 * Other Equipment [facility] - MEDICAL EQUIPMENT PROVIDER [facility] - HOSPITAL BED PROVIDER 0 * List name and contact numbers for known caregivers / representatives who currently or will assist patient after discharge: TIA SCOTT, SPOUSE, / [phone] 0 * Community resources currently utilized Home Health 0 * Please name any agencies selected above. [facility] 0 * Additional services required to return to the preadmission environment? No 0 * Can the patient safely return to the preadmission environment? Yes 0 * Has this patient been hospitalized within the prior 30 days at any hospital? No 0 CM MET WITH PT AND SPOUSE IN ROOM TO DISCUSS DISCHARGE PLANNING AND NEEDS. PT REPORTS LIVING AT HOME DEPENDENT ON SPOUSE AND ADULT DAUGHTER. PT HAS ALL NEEDED MEDICAL EQUIPMENT PROVIDED BY [employer] [facility] [employer] [facility]. PT HAS HOME HEALTH WITH [facility]. PT REPORTS HER HOSPITAL BED IS BROKEN AND THEY WOULD LIKE A NEW ONE. PT REPORTS HER FAMILY WILL PICK HER UP FOR DISCHARGE HOME. CM CALLED [facility], SPOKE TO ESTER AND WAS ADVISED PT RECEIVED THE HOSPITAL BED IN 2012 AND CANNOT GET ANOTHER ONE THROUGH MEDICARE IT HAS NOT BEEN 5 YEARS; [facility] CAN REPAIR THE BED AND ADVISED THAT PT OR FAMILY CALL FOR REPAIR TICKET. CM ADVISED PT AND SPOUSE, PT'S SPOUSE TO CALL [facility] TO HAVE BED REPAIRED. PT PLANS TO DISCHARGE HOME WITH FAMILY AND HOME HEALTH RESUMPTION. TO RESUME HOME HEALTH AT DISCHARGE, NOTIFY [facility] AT [phone], FAX DISCHARGE INFORMATION TO [facility] AT [phone]. CM TO FOLLOW AND ASSIST NEEDED. Client Advocate: Joey Porter
--- NOTE | 2016-09-01 20:58 | NUR ---
RESUMED CARE OF PT PT ASSESSMENT COMPLETED AND PO HS MEDS ADMIN ORDERED NO DISTRESS OBSERVED AND PT ABLE TO SWALLOW WITH NO DIFFICULTIES. BED LOW AND LOCKED SRX2 RESPERATIONS EVEN AND UNLABORED ON 3LNC PT LAYING ON 1ST STEP OVERLAY WITH CALL LIGHT IN REACH NO DISTRESS OBSERVED WILL MONITOR
[2016-09-01 21:01] VITALS: BP 176/69
--- NOTE | 2016-09-01 23:04 | NUR ---
NOTIFIED FROM ROAD FREIGHT FIRER THAT PT NOW IN FLUTTER RATE 77 CHECKED MONITOR AND 77 FLUTTER SHOWING, PT LAYING IN BED NO DISTRESS OBSERVED WILL MONITOR
[2016-09-02 01:09] VITALS: BP 190/83
[2016-09-02 05:23] VITALS: BP 170/46
[2016-09-02 06:20] LABS: BASOPHILS 0.2 % (0.0-2.0); EOSINOPHILS 0.2 % (0-7); HEMATOCRIT 39.3 % (36.0-48.0); HEMOGLOBIN 13.1 g/dL (12-16); IMMATURE GRANULOCYTES 0.4 % (0-5); LYMPHOCYTES 10.7 % (15-50); MCH 30.7 pg (26.0-34.0); MCHC 33.3 g/dL (31.0-37.0); MEAN PLATELET VOLUME 11.5 fL (7.4-10.4); MONOCYTES 6.8 % (2-11); NEUTROPHILS 81.7 % (40-80); PLATELET COUNT 199 10x3/uL (130-400); RBC 4.27 10x6/uL (4.00-5.40); RDW 12.6 % (11.5-14.5); WBC 13.2 10x3/uL (4.8-10.8)
[2016-09-02 06:21] LABS: CALC OSMOLALITY 283 mosm/kg (275-300); CALCIUM 9.5 mg/dL (8.5-10.1); CARBON DIOXIDE 23.1 mmol/L (21.0-32.0); CHLORIDE - SERUM 100 mmol/L (98-107); CREATININE - SERUM 0.8 mg/dL (0.6-1.3); GLUCOSE 200 mg/dL (74-106); MAGNESIUM - SERUM 1.8 mg/dL (1.8-2.4); PHOSPHOROUS 2.6 mg/dL (2.5-4.9); POTASSIUM - SERUM 3.9 mmol/L (3.5-5.1); SODIUM 137 mmol/L (136-145); UREA NITROGEN 24 mg/dL (7-18); eGFR NON AFRICAN AMERICAN 75 mL/min (90-120)
--- NOTE | 2016-09-02 07:30 | NUR ---
ASSESSMENT DONE. LUNGS WITH WHEEZING AND CRACKLES BILATERALLY. COUGH WEAK. NURSE AND SUPPLY REQUIREMENTS OFFICER REPOSITIONED PT FOR BREAKFAST. PT'S SPOUSE IN ROOM. ELEVATED LE WITH PILLOW. SENIOR PATENT TO BSD WITH CLEAR, DARK, YELLOW URNINE. IV TO RIGHT HAND INDEX FINGER, 22G WITH CARDIZEM GTT GOING AT 10ML/HR. PT SR ON TELEMETRY. PT DENIES NEEDS AT THIS TIME. CALL LIGHT WITH IN REACH. WILL CONT. TO MONITOR.
[2016-09-02 08:09] VITALS: BP 181/79
--- NOTE | 2016-09-02 08:25 | NUR ---
CT CALLED STATES PT HAS SCAN ORDERED FOR THIS AM. WANTED TO KNOW IF PT HAD EATEN, WHICH SHE HAD. ALSO NOTED PT'S IODINE ALLERGY. WANTED TO KNOW IF PT HAD BEEN PRE-MEDICATED, WHICH SHE HAD NOT BEEN. THIRD LOADER REQUESTED THAT I CALL DR. COLON TO SEE IF HE WANT TO CHANGE ORDER TO VQ SCAN OR DO THE 13 HR PREP FOR THIS SCAN. DR. COLON STATE HE WANTS THIS SCAN DONE AND TO DO THE PRE-MED PREP. HE IS AWARE THE SCAN WILL BE DONE IN THE AM. PT IS TO BE NPO AFTER MIDNIGHT. PT AND SPOUSE ARE AWARE OF THIS AND SIGN WAS PUT ON DOOR. PT WILL NEED TO AT 20G IV PLACED FOR PROCEDURE. NURSE WILL ATTEMPT TO RESITE.
[2016-09-02 11:36] VITALS: BP 197/79
--- NOTE | 2016-09-02 13:10 | NUR ---
UD GIVEN BY RT. CALL LIGHT IN REACH. WILL CONT. [PLAN OF CARE.
[2016-09-02 15:37] VITALS: BP 185/88
--- NOTE | 2016-09-02 16:19 | NUR ---
PT AWAKE A/O. WATCHING BASKETBALL ON TV. DENIES NEEDS OR DISCOMFORT AT THIS TIME. SPOUSE IN ROOM. CALL LIGHT WITH IN REACH. WILL CONT. TO MONITOR.
[2016-09-02 20:04] VITALS: BP 203/88
--- NOTE | 2016-09-02 21:42 | NUR ---
PT ASSESSMENT COMPLETED PT LAYING IN BED READING A BOOK NO DISTRESS OBSERVED CALL LIGHT IN REACH SRX2 BED LOW AND LOCKED RESPERATIONS EVEN AND UNLABORED
--- NOTE | 2016-09-03 00:14 | NUR ---
20 IVP STARTED IN THE LEFT AC SALINE LOCKED 10CC SALINE FLUIDS FLUSHED THROUGH AND IVP GOOD.
[2016-09-03 00:30] VITALS: BP 195/85
--- NOTE | 2016-09-03 01:11 | NUR ---
PREDNISONE DOSE ADMIN ORDER FOR PREMEDICATION FOR IODINE ALLERGY
[2016-09-03 04:30] VITALS: BP 178/92
--- NOTE | 2016-09-03 07:10 | NUR ---
RECEIVED REPORT. ASSUMED CARE OF PATIENT. ALERT/ORIENTED. 1ST STEP OVERLAY PATENT. CALL LIGHT WITHIN REACH. PATIENTS SPOUSE AT BEDSIDE. DENIES NEEDS. NO DISTRESS.
[2016-09-03 07:21] LABS: BASOPHILS 0.5 % (0.0-2.0); EOSINOPHILS 0.5 % (0-7); HEMATOCRIT 39.6 % (36.0-48.0); HEMOGLOBIN 13.1 g/dL (12-16); IMMATURE GRANULOCYTES 1.7 % (0-5); LYMPHOCYTES 7.9 % (15-50); MCH 30.6 pg (26.0-34.0); MCHC 33.1 g/dL (31.0-37.0); MCV 92.5 fL (80.0-100.0); MEAN PLATELET VOLUME 11.9 fL (7.4-10.4); MONOCYTES 3.6 % (2-11); NEUTROPHILS 85.8 % (40-80); PLATELET COUNT 227 10x3/uL (130-400); RBC 4.28 10x6/uL (4.00-5.40); RDW 12.5 % (11.5-14.5)
[2016-09-03 07:22] LABS: WBC 8.8 10x3/uL (4.8-10.8)
[2016-09-03 07:34] VITALS: BP 184/84
[2016-09-03 07:35] LABS: CALC OSMOLALITY 290 mosm/kg (275-300); CALCIUM 9.1 mg/dL (8.5-10.1); CARBON DIOXIDE 17.8 mmol/L (21.0-32.0); CHLORIDE - SERUM 102 mmol/L (98-107); CREATININE - SERUM 0.7 mg/dL (0.6-1.3); GLUCOSE 260 mg/dL (74-106); POTASSIUM - SERUM 4.5 mmol/L (3.5-5.1); SODIUM 139 mmol/L (136-145); UREA NITROGEN 23 mg/dL (7-18); eGFR NON AFRICAN AMERICAN 88 mL/min (90-120)
--- NOTE | 2016-09-03 07:58 | NUR ---
RECEIVED CALL FROM ALYSE IN [place] AND WILL UP TO GET PATIENT SOON. CALLED TO VERIFY THAT PATIENT DOES HAVE A 20 GAUGE. INFORMED THAT PATIENT DOES HAVE PATENT 20 GAUGE TO LEFT AC AT THIS TIME.
[2016-09-03 11:36] VITALS: BP 196/87
--- NOTE | 2016-09-03 11:49 | NUR ---
PATIENTS SPOUSE CONCERNED THAT PATIENTS BLOOD SUGAR MAY BE ELEVATED DUE TO PATIENT IS NOT RECEIVING HER LEVIMER THAT SHE TAKES AT HOME ONCE DAILY IN AM. FSBS CHECKED, FSBS 242 AT THIS TIME. INFORMED PATIENT THAT ORDERS WILL BE OBTAINED TO TREAT HER HYPERGLYCEMIA.
--- NOTE | 2016-09-03 13:26 | NUR ---
4 UNITS HUMALOG ADMINISTERED PER SLIDING SCALE AT THIS TIME. NO DISTRESS.
[2016-09-03 15:32] VITALS: BP 168/70
--- NOTE | 2016-09-03 16:30 | NUR ---
FSBS 317. 8 UNITS HUMALOG ADMINISTERED PER SLIDING SCALE. ALSO MEDICATED WITH MOM FOR NO BM X 2 DAYS. ALL IV TUBING CHANGED AT THIS TIME. FAMILY REMAINS AT BEDSIDE. CALL LIGHT WITHIN REACH. NO DISTRESS.
--- NOTE | 2016-09-03 18:44 | NUR ---
RESTING IN BED WITH EYES CLOSED. EASILY AROUSED. DENIES NEEDS. NO DISTRESS.
--- NOTE | 2016-09-03 19:36 | NUR ---
ASSESSMENT COMPLETE. RESPERATIONS EVEN ON 02 AT 2 LITER VIA NC. IV TO RIGHT HAND WITH NS INFUSING AT 10 AND CARDIZEM AT 10, SITE CLEAN AND DRY. SENIOR DRAINING TO GRAVITY, PT DENIES PAIN OR NEEDS, BED LOW, CL IN REACH, WILL CONT TO MONITOR.
[2016-09-03 20:36] VITALS: BP 185/66
--- NOTE | 2016-09-03 21:16 | NUR ---
HS MEDS GIVEN, BS 278, COVERED PER S/S. PT DENIES PAIN OR NEEDS, BED LOW, CL IN REACH.
--- NOTE | 2016-09-04 00:30 | NUR ---
NETWORK DIRECTOR AT BEDSIDE FOR VS. NEEDS ADDRESSED AT THIS TIME. CALL LIGHT IN REACH. WILL CONT TO MONITOR.
[2016-09-04 01:24] VITALS: BP 183/77
--- NOTE | 2016-09-04 02:40 | NUR ---
RESTING WITH EYES CLOSED, RESPERATIONS EVEN, NO S/S DISTRESS NOTED.
[2016-09-04 05:20] LABS: BASOPHILS 0.1 % (0.0-2.0); EOSINOPHILS 0 % (0-7); HEMOGLOBIN 10.9 g/dL (12-16); LYMPHOCYTES 15.3 % (15-50); MCH 30.4 pg (26.0-34.0); MCV 92.2 fL (80.0-100.0); MEAN PLATELET VOLUME 11.1 fL (7.4-10.4); NEUTROPHILS 71.6 % (40-80); PLATELET COUNT 244 10x3/uL (130-400); RBC 3.58 10x6/uL (4.00-5.40); RDW 12.5 % (11.5-14.5); WBC 10.9 10x3/uL (4.8-10.8)
[2016-09-04 05:40] LABS: CALC OSMOLALITY 283 mosm/kg (275-300); CALCIUM 9.1 mg/dL (8.5-10.1); CHLORIDE - SERUM 101 mmol/L (98-107); CREATININE - SERUM 0.8 mg/dL (0.6-1.3); GLUCOSE 237 mg/dL (74-106); SODIUM 135 mmol/L (136-145); UREA NITROGEN 28 mg/dL (7-18); eGFR NON AFRICAN AMERICAN 75 mL/min (90-120)
[2016-09-04 05:44] LABS: CARBON DIOXIDE 26.9 mmol/L (21.0-32.0)
[2016-09-04 06:26] VITALS: BP 157/63
--- NOTE | 2016-09-04 07:13 | NUR ---
AM ROUNDING- PT LAYING IN BED ON BACK WITH EYES OPEN RESTING. PT IS ON FIRST STEP OVERLAY MATTRESS. ON O2 AT 2L VIA NC. PER REPORT PT IS A PARAPLEGIC. IV SEEN TO RIGHT HAND WITH NS RUNNING AT 10CC AND CARDIZEM RUNNING AT 10CC. SECOND IV SEEN TO LEFT AC THAT IS CURRENTLY SALINE LOCKED AND PATENT. PT HAS CHRONIC SENIOR, PER REPORT FROM DISABILITY ATTORNEY NURSE DANAE, HOME HEALTH CHANGES AND WAS RECENTLY CHANGED LAST WEEK, YELLOW URINE SEEN. ON EP, WILL CHECK AM LABS AND TX PER PROTOCOL. ON LOVENOX INJECTION FOR DVT. ON MONITOR SHOWING SR, HR 75. PT IS ALERT AND ORIENTED. NO NEED AT CURRENT TIME. WILL CONTINUE TO MONITOR.
[2016-09-04 07:43] VITALS: BP 160/74
[2016-09-04 12:07] VITALS: BP 147/59
--- NOTE | 2016-09-04 13:38 | NUR ---
CONSENTS FOR CARDIAC CATH FOR 09/05/16 ARE SIGNED AND DATED AND PLACED IN CHART. NPO AFTER MIDNIGHT FOR 09/04/16 PLACED ON PTS DOOR AND EXPLAINED TO PT NOT TO EAT OR DRINK ANYTHING AFTER MIDNIGHT TONIGHT, PT AGREED. WILL PASS THIS ALONG IN REPORT TONIGHT FOR CANDY PULLER NURSE.
--- NOTE | 2016-09-04 13:39 | NUR ---
UPON HAVING PT SIGN CONSENTS FOR PROCEDURE, NOTICED PTS IV CATHETER TO RIGHT HAND LEAKING. TRIED TO ADJUST IV AND FLUSH AND IV IS STILL LEAKING. FLUSHED IV TO LEFT AC AND FELT SLIGHT RESISTANCE. CALLED SHANTELLE ALICIA, VASCULAR ACCESS NURSE AND ASKED IF SHE COULD COME LOOK AT IVS. SHANTELLE ALICIA IS ON UNIT NOW. WILL CONTINUE TO MONITOR.
--- NOTE | 2016-09-04 13:41 | NUR ---
DINA RAZA D/C ORDERED.
--- NOTE | 2016-09-04 13:52 | NUR ---
1345- SHANTELLE ALICIA IN ROOM, STATED BOTH IVS ARE INFILTRATED. SHANTELLE ALICIA RN ATTEMPTED TO RESITE PT X 2 STICKS. 20G IV RESITED TO LEFT WRIST, TOLERATED WELL. BOTH IVS THAT ARE INFILTRATED REMOVED WITH CATH TIP INTACT, COVERED WITH 2X2 GUAZE AND SECURED WITH TAPE.
--- NOTE | 2016-09-04 14:17 | NUR ---
TURNED PT ON LEFT SIDE.
[2016-09-04 16:15] VITALS: BP 145/58
--- NOTE | 2016-09-04 18:46 | NUR ---
PT SITTING UP IN BED CURRENTLY ON THE BED NOEL. NO NEED AT CURRENT TIME. WILL AWAIT PT TO GET DONE AND HELP HER OFF BED NOEL AND CLEAN UP. WILL CONTINUE TO MONITOR.
--- NOTE | 2016-09-04 19:35 | NUR ---
RECEIVED REPORT, PT SLEEPING, 02-2L, IV-R.HAND-SL, ON . MATTRESS, HAS A PARRISH, [id number], GOING FOR CATH. IN AM, CONSENT SIGNED PER DAY SHIFT, BED IS LOW, SRX2, CALL LIGHT IN REACH, WILL CONTINUE TO MONITOR
[2016-09-04 20:00] VITALS: BP 149/58
[2016-09-05] VITALS: BP 159/73
--- NOTE | 2016-09-05 00:30 | NUR ---
STRUCTURED CABLING TECHNICIAN AT BEDSIDE FOR VS. NEEDS ADDRESSED. CALL LIGHT IN REACH. WILL CONT TO MONITOR.
[2016-09-05 04:00] VITALS: BP 181/76
[2016-09-05 05:32] LABS: BASOPHILS 0.1 % (0.0-2.0); EOSINOPHILS 0.5 % (0-7); HEMATOCRIT 34.2 % (36.0-48.0); HEMOGLOBIN 11.5 g/dL (12-16); LYMPHOCYTES 20.8 % (15-50); MCH 30.7 pg (26.0-34.0); MCHC 33.6 g/dL (31.0-37.0); MCV 91.4 fL (80.0-100.0); MONOCYTES 12.5 % (2-11); NEUTROPHILS 65.1 % (40-80); PLATELET COUNT 223 10x3/uL (130-400); RBC 3.74 10x6/uL (4.00-5.40); RDW 12.6 % (11.5-14.5); WBC 9.3 10x3/uL (4.8-10.8)
[2016-09-05 06:04] LABS: CALCIUM 8.6 mg/dL (8.5-10.1); CARBON DIOXIDE 25.6 mmol/L (21.0-32.0); CHLORIDE - SERUM 100 mmol/L (98-107); CREATININE - SERUM 0.8 mg/dL (0.6-1.3); POTASSIUM - SERUM 3.8 mmol/L (3.5-5.1); SODIUM 135 mmol/L (136-145); eGFR NON AFRICAN AMERICAN 75 mL/min (90-120)
[2016-09-05 06:05] LABS: CALC OSMOLALITY 277 mosm/kg (275-300); GLUCOSE 182 mg/dL (74-106); UREA NITROGEN 20 mg/dL (7-18)
--- NOTE | 2016-09-05 07:05 | NUR ---
RECEIVED REPORT. ASSUMED CARE OF PATIENT. CALL LIGHT WITHIN REACH. EYES OPEN, RESP EVEN AND UNLABORED. 1ST STEP OVERLAY PATENT. SENIOR CATH PATENT. PATIENT NPO THIS AM FOR HEART CATH TODAY. DENIES NEEDS. NO DISTRESS.
[2016-09-05 08:01] VITALS: BP 173/77
--- NOTE | 2016-09-05 11:19 | NUR ---
FSBS 182. NO INSULIN COVERAGE PATIENT IS GOING TO CHUCKING AND SAWING MACHINE OPERATOR. PREOP MEDS ADMINISTERED AT THIS TIME. AWAITING CHUCKING AND SAWING MACHINE OPERATOR TEAM TO COME GET PATIENT. CALL LIGTH WITHIN REACH
[2016-09-05 12:15] VITALS: BP 166/69
--- NOTE | 2016-09-05 12:58 | NUR ---
CALLED VETERINARY POULTRY INSPECTOR AND SPOKE TO ASHISH, PATIENT HAS NOT HAD 13 PREP FOR IV DYE. PATIENT ONLY RECEIVED 50MG BENADRYL FOR PREOP WHEN VETERINARY POULTRY INSPECTOR CALLED. PREOP ORDER FOR IV DYE PROTOCOL WAS NOT ORDERED. ASHISH THANKED THIS NURSE FOR RETURNING CALL.
--- NOTE | 2016-09-05 13:24 | NUR ---
RECEIVED REPORT FROM [facility] IN [facility]. PATIENT HAD STENT PLACED TO CIRC AND WILL RETURN TOMORROW FOR STENT PLACEMENT TO LAD. INFORMED THAT WILL BE IN TO SPEAK TO PATIENT FAMILY AFTER CLINIC HE IS ON HIS WAY TO CLINIC AT THIS TIME.
--- NOTE | 2016-09-05 13:47 | NUR ---
RECEIVED PATIENT BACK TO ROOM FROM WATER SUPERINTENDENT AT 1340. EASILY AROUSED. PHEMSTOP TO RIGHT GROIN. NO S/S HEMATOMA. PERIPHERAL PULSES PATENT. IV FLUIDS INFUSING ORDERED. IST STEP OVERLAY PATENT. NO DISTRESS. CALL LIGHT WITHIN REACH.
[2016-09-05 15:36] VITALS: BP 168/74
--- NOTE | 2016-09-05 15:59 | NUR ---
FEMOSTOP REMOVED FROM RIGHT GROIN AT THIS TIME PER ORDERS FROM ASSISTANT CONTROLLER. 2X2 APPLIED AND SECURED WITH TEGADERM. NO S/S OF HEMATOMA. PERIPHERAL PULSES PATENT. FAMILY REMAINS AT BEDSIDE. NO DISTRESS.
--- NOTE | 2016-09-05 16:45 | NUR ---
FSBS 231. 8 UNITS HUMALOG ADMINISTERED PER SLIDING SCALE AT THIS TIME. NO DISTRESS.
--- NOTE | 2016-09-05 18:44 | NUR ---
RESTING WELL WITH EYES CLOSED. EASILY AROUSED. RESP EVEN AND UNLABORED. NO DISTRESS. NO HEMATOMA TO RIGHT FEMORAL. PERIPHERAL PULSES PATENT. CALL LIGHT WITHIN REACH. NO DISTRESS.
--- NOTE | 2016-09-05 19:47 | NUR ---
RESUMED CARE OF PT, PT SLEEPING, 02-2L, [id number], HAS CHRONIC SENIOR, [id number], DRESSING TO RIAN-DCI, ON 1ST MATTRESS, BED IS LOW, SRX2, CALL LIGHT IN REACH, WILL CONTINUE TO MONITOR
[2016-09-05 21:04] VITALS: BP 154/104
[2016-09-06 01:48] VITALS: BP 132/65
--- NOTE | 2016-09-06 03:12 | NUR ---
ASSESSMENT COMPLETE AND CHARTED, PT SLEEPING, CALL LIGHT IN REACH
--- NOTE | 2016-09-06 04:00 | NUR ---
GUM SCORING MACHINE OPERATOR AT BEDSIDE FOR VS. CONT TO MONITOR.
[2016-09-06 05:05] VITALS: BP 164/87
[2016-09-06 05:20] LABS: BASOPHILS 0 % (0.0-2.0); EOSINOPHILS 0 % (0-7); HEMATOCRIT 33.7 % (36.0-48.0); HEMOGLOBIN 10.9 g/dL (12-16); IMMATURE GRANULOCYTES 1.6 % (0-5); MCH 29.9 pg (26.0-34.0); MCHC 32.3 g/dL (31.0-37.0); MCV 92.6 fL (80.0-100.0); MEAN PLATELET VOLUME 10.8 fL (7.4-10.4); MONOCYTES 2.9 % (2-11); NEUTROPHILS 79.5 % (40-80); PLATELET COUNT 219 10x3/uL (130-400); RBC 3.64 10x6/uL (4.00-5.40); RDW 12.4 % (11.5-14.5)
[2016-09-06 05:26] LABS: WBC 3.7 10x3/uL (4.8-10.8)
[2016-09-06 05:34] LABS: CALC OSMOLALITY 281 mosm/kg (275-300); CALCIUM 8.7 mg/dL (8.5-10.1); CARBON DIOXIDE 24.2 mmol/L (21.0-32.0); CHLORIDE - SERUM 102 mmol/L (98-107); CREATININE - SERUM 0.7 mg/dL (0.6-1.3); GLUCOSE 227 mg/dL (74-106); POTASSIUM - SERUM 4.7 mmol/L (3.5-5.1); SODIUM 136 mmol/L (136-145); UREA NITROGEN 21 mg/dL (7-18); eGFR NON AFRICAN AMERICAN 88 mL/min (90-120)
[2016-09-06 08:31] VITALS: BP 187/75
--- NOTE | 2016-09-06 09:50 | NUR ---
ADMINISTERED PRE-OP MEDS FOR DRAFTER ELECTRONIC ORDERED. PT ALSO REC'D PRN SOLU-MEDROL AND PEPCID R/T IODINE ALLERGY. PT RESTING IN BED WITH FAMILY AT BEDSIDE. RR NONLABORED WITH NC @4L IN PLACE. REMOVED TELEMETRY, CONNECTED NS BAG TO R.UPPER ARM PIV. PT DENIES ANY CURRENT NEEDS. WILL CPOC.
--- NOTE | 2016-09-06 10:00 | NUR ---
PTS R.GROIN DRSG FROM HUMAN SERVICES SUPERVISOR YESTERDAY IS COMPLETELY SATURATED. SMALL HEMATOMA NOTED ABOVE INCISION SITE. CHANGED DRSG AND CLEANSED SITE. APPLIED NEW GUAZE AND WILL CTM FOR ANY FURTHER BLEEDING.
--- NOTE | 2016-09-06 11:05 | NUR ---
PT GONE TO [facility]INO [facility]NER.
--- NOTE | 2016-09-06 11:54 | NUR ---
PT RETURNED FROM BEER BREWER. NEW DRSG TO L.GROIN SLIGHTLY BLOODY NO S/S OF HEMATOMA NOTED AT THIS TIME. FEM STOP PLACED PER DEMETRIA 20MMHG ABOVE NORMAL BP. R.GROIN DRSG FULLY SATURATED WITH HEMATOMA NOTED. SANDBAG PLACED OVER IT AND NEW CLEAN DRSG APPLIED. PT IS LYING FLAT AND AWARE FOR 4 HOURS. VSS. PT HAS R.UPPER ARM PIV WITH DRSG CDI NS INFUSING @100ML/HR X4 HOURS. NO CURRENT NEEDS. WILL CTM CLOSELY FOR BLEEDING.
--- NOTE | 2016-09-06 12:41 | NUR ---
FEM STOP IN PLACE STILL AND WILL REMAIN FOR ONE HOUR. PERIPHERAL PULSES INTACT. VSS. AT BEDSIDE. NO CURRENT NEEDS. WILL CPOC.
--- NOTE | 2016-09-06 13:08 | NUR ---
RELEASE FEM STOP WITH DEMETRIA FROM SPAR CAP BEVELER. GORDO CONTINUED TO BLEED. CHANGED OUT DRSG AND REAPPLIED FEM STOP FOR ONE MORE HOUR AND WILL CONTINUE TO WATCH. RIAN DRSG CDI. PERIPHERAL PULSES INTACT. VSS. PT LYING FLAT RESTING COMFORTABLY. PROVIDED WITH FRESH ICE WATER. NO FURTHER NEEDS AT THIS TIME. CL IN REACH, BED IN LOWEST, SIDE RAILS X2. WILL CTM.
--- NOTE | 2016-09-06 14:19 | NUR ---
Nutrition follow-up: Pt just back from chat lab; cath yesterday also. Pt has been NPO x last 4 meals Diet now advanced to ADA consistent CHO with po intake ~25% of meals Chocolate Ensure with meals Labs reviewed Wt: 143# +BM, smear Pt may benefit from a stool softener due to no BM in several days. Will continue to provide food choices and honor food preferences within diet restictions. RDN following.
[2016-09-06 16:22] VITALS: BP 172/74
--- NOTE | 2016-09-06 18:02 | NUR ---
AFTER REMOVING FEM STOP HOUR AFTER HOUR AND SWITCHING SIDES R/T GUAZES BEING SATURATED. BOTH GROIN DRSGS HAVE BEEN CHANGED 3 TIMES R/T SATURATION, NOW BOTH CDI NO S/S OF BLEEDING, LEFT SAND BAG ON FOR ADDITIONAL HOUR. SENIOR WAS LEAKING AND SOILED LINENS PT HAD INCONTINENT EPISODE OF BM. CHANGED LINENS OUT PLACED NEW FOLE USING STERILE TECHNIQUE WITH 18FR. DRAINING CLEAR YELLOW URINE TO GRAVITY, STAT LOCK SECURED TO R.INNER THIGH. FSBS 409 PROVIDED PT WITH 20 UNITS PER SS INSULIN. AT BEDSIDE AND AWARE AND WANTS TO CONTINUE CURRENT SS PT IS MOST LIKELY THIS OUT OF RANGE R/T BEING NPO AND NOT RECIEVING INSULIN TODAY R/T POSSIBLY DROP. WILL CONTINUE TO MONITER IT AND ADJUST NEEDS. PT ON AIR MATTRESS PULLED UP IN BED SITTING UP COMFORTABLY WITH BILAT HEELS BRIDGED. FAMILY AT BEDSIDE. WILL CPOC.
--- NOTE | 2016-09-06 19:25 | NUR ---
RECEIVED REPORT, 022L, IV-R. UPPERARM-SL, [id number], L.&R. GROIN DRESSING/ CDI, PT HAS CHRONIC SENIOR, ON 1ST MATTRESS, BED IS LOW, SRX2, DENIES ANY NEEDS, CALL LIGHT IN REACH, WILL CONTINUE TO [facility]
[2016-09-06 22:23] VITALS: BP 191/86
--- NOTE | 2016-09-07 03:27 | NUR ---
ASSESSMENT COMPLETE, PT IS CONFUSED, ASKING WHY SHE IS NOT IN THE OTHER ROOM, WANTS TO GO BACK TO ROOM THAT SHE WAS IN BEFORE, BED ALARM ON, WILL CONTINUE TO MONITOR
--- NOTE | 2016-09-07 03:30 | NUR ---
ASSESSMENT COMPLETE, PT IS SLEEPING, NO DISTRESS NOTICED, CALL LIGHT IN REACH, WILL CONTINUE TO MONITOR
[2016-09-07 03:36] VITALS: BP 184/71
[2016-09-07 06:22] VITALS: BP 214/79
[2016-09-07 06:54] LABS: BASOPHILS 0 % (0.0-2.0); EOSINOPHILS 0 % (0-7); IMMATURE GRANULOCYTES 1.2 % (0-5); LYMPHOCYTES 10.8 % (15-50); MCH 30.1 pg (26.0-34.0); MCHC 32.4 g/dL (31.0-37.0); MCV 92.9 fL (80.0-100.0); MEAN PLATELET VOLUME 11.3 fL (7.4-10.4); MONOCYTES 6.5 % (2-11); NEUTROPHILS 81.5 % (40-80); PLATELET COUNT 262 10x3/uL (130-400); RBC 3.66 10x6/uL (4.00-5.40); RDW 12.5 % (11.5-14.5)
[2016-09-07 06:57] LABS: WBC 4.9 10x3/uL (4.8-10.8)
[2016-09-07 07:08] LABS: CALC OSMOLALITY 285 mosm/kg (275-300); CARBON DIOXIDE 28.8 mmol/L (21.0-32.0); CHLORIDE - SERUM 101 mmol/L (98-107); CREATININE - SERUM 0.8 mg/dL (0.6-1.3); GLUCOSE 318 mg/dL (74-106); POTASSIUM - SERUM 5.2 mmol/L (3.5-5.1); SODIUM 134 mmol/L (136-145); UREA NITROGEN 28 mg/dL (7-18); eGFR NON AFRICAN AMERICAN 75 mL/min (90-120)
--- NOTE | 2016-09-07 07:31 | NUR ---
PT SITTING UP IN BED RECEIVING BREATHING TX. DENIES NEEDS WILL CONT TO MONITOR.
[2016-09-07 08:20] LABS: MAGNESIUM - SERUM 2.2 mg/dL (1.8-2.4); POTASSIUM - SERUM 5.3 mmol/L (3.5-5.1)
[2016-09-07 09:05] VITALS: BP 137/59
[2016-09-07 12:28] VITALS: BP 146/68
--- NOTE | 2016-09-07 13:31 | NUR ---
RESTING WITH EYES CLOSED. CALL LIGHT WITHIN REACH.
[2016-09-07 16:28] VITALS: BP 135/55
--- NOTE | 2016-09-07 19:00 | NUR ---
RECEIVED REPORT AND ASSUMED PT CARE FROM DAY SHIFT NURSE @ THIS TIME.
[2016-09-07 19:53] VITALS: BP 155/53
--- NOTE | 2016-09-07 20:30 | NUR ---
PT GLUCOSE 412, TEST REPEATED 440. HUMALOG 28 UNITS SQ AND HUMULIN N 10 UNITS PER ORDERS. WILL RECHECK AT MIDNIGHT. PT UPDATED ON POC AND VERBALIZES UNDERSTANDING
--- NOTE | 2016-09-07 22:30 | NUR ---
PT RESTING WELL WITHOUT C/O OR DISTRESS NOTED. CALL LIGHT WITHIN REACH. WI CONT TO MONITOR.
[2016-09-08 00:24] VITALS: BP 180/67
--- NOTE | 2016-09-08 00:40 | NUR ---
GLUCOSE RECHECKED AND NOW RESULTS 179. NO FURTHER INTERVENTION REQUIRED AT THIS TIME.
[2016-09-08 04:23] VITALS: BP 183/74
[2016-09-08 06:38] LABS: BASOPHILS 0.1 % (0.0-2.0); EOSINOPHILS 0.2 % (0-7); HEMATOCRIT 31.9 % (36.0-48.0); HEMOGLOBIN 10.6 g/dL (12-16); IMMATURE GRANULOCYTES 1.3 % (0-5); MCH 30.3 pg (26.0-34.0); MCHC 33.2 g/dL (31.0-37.0); MCV 91.1 fL (80.0-100.0); MEAN PLATELET VOLUME 11.4 fL (7.4-10.4); MONOCYTES 9.5 % (2-11); NEUTROPHILS 65.9 % (40-80); PLATELET COUNT 257 10x3/uL (130-400); RDW 12.5 % (11.5-14.5)
[2016-09-08 06:53] LABS: WBC 10.3 10x3/uL (4.8-10.8)
[2016-09-08 07:05] LABS: CALCIUM 8.7 mg/dL (8.5-10.1); CARBON DIOXIDE 28.1 mmol/L (21.0-32.0); CHLORIDE - SERUM 98 mmol/L (98-107); CREATININE - SERUM 0.8 mg/dL (0.6-1.3); MAGNESIUM - SERUM 1.9 mg/dL (1.8-2.4); SODIUM 132 mmol/L (136-145); UREA NITROGEN 30 mg/dL (7-18); eGFR NON AFRICAN AMERICAN 75 mL/min (90-120)
[2016-09-08 07:07] LABS: CALC OSMOLALITY 276 mosm/kg (275-300); GLUCOSE 203 mg/dL (74-106); PHOSPHOROUS 2.1 mg/dL (2.5-4.9); POTASSIUM - SERUM 4.3 mmol/L (3.5-5.1)
--- NOTE | 2016-09-08 07:45 | NUR ---
INTRODUCED MYSELF TO PT PRIMARY RN FOR TODAYS SHIFT. I HAVE HAD BEFORE AND SHE IS FAMILAR WITH ME. SHE STATES SHE IS FEELING SO MUCH BETTER AND HOPES TO DISCHARGE TODAY. SHIFT ASSESSMENT COMPLETED. SENIOR HANGING OFF R.SIDE OF BED TO GRAVITY DRAINING CLEAR YELLOW URINE. PT HAS AT BEDSIDE DENIES ANY CURRENT NEEDS. CL IN REACH. WILL CPOC.
--- NOTE | 2016-09-08 08:46 | EC ---
PATIENT:SANDRA SCOTT DATE OF SERVICE: 08/31/16 SEX: F MEDICAL RECORD: [id number] DATE OF : 45 LOCATION:D.M2 D.213 AGE OF PATIENT: 70 ADMISSION DATE: 08/31/16 REFERRING PHYSICIAN: INTERPRETING PHYSICIAN: MAJO MARTINEZ MD ECHOCARDIOGRAM REPORT ECHO CHARGES 4 ECHO COMPLETE CLINICAL DIAGNOSIS: DYSPNEA/ AFIB/A FLUTTER HX OF HTN ECHOCARDIOGRAPHIC MEASUREMENTS (adult normal given) AC root (d.<3.7cm) 2.6 LV Septum d (<1.2 cm> 1.4 Valve Excursion 1.5 LV Septum (systole) 1.5 Left Atria (s.<4.0cm> 3.1 LVPW d(<1.2cm) 1.6 RV (d.<2.3cm) 3.2 LVPW (sytole) 1.7 LV diastole(<5.6CM) 5.1 MV E-F(>70mm/sec) LV systole 3.4 LVOT Diameter 1.4 MV exc.(>10mm) 1.7 Est.ejection fraction (50-75%) Pericardial Effusion N DOPPLER: LVIT A 61.0 E 119 LA RVSP LVOT 96 AOP1/2T Asc. Ao 133 RVOT 116 RA PA 142 AV Gradient Peak 7.04 AV Mean 3.2 AV Area 1.3 MV Gradient Peak 6.10 MV Mean 2.50 MV Area COMMENTS: Bioassayist: Eufemia BERTRAND Partner Marketing Intern:2 Dr. Arellano TAPE# PACS DATE OF SERVICE: 08/31/2016 Echocardiogram FINDINGS: 1. Left ventricular chamber size is within normal limits. Left ventricular systolic function is normal. Overall ejection fraction estimated at 55%. 2. Left atrium, right atrium, and right ventricular chamber sizes are within normal limits. 3. Valvular structures have normal structure and motion. ECHOCARDIOGRAM REPORT [id number] SANDRA SCOTT 4. Doppler interrogation reveals no significant valvular insufficiency or stenosis. 5. No evidence of pericardial effusion or left ventricular thrombus. 6. The patient is in atrial fibrillation during the study. TRANSINT:[id number] Voice Confirmation ID: [id number] DOCUMENT ID: [id number] MAJO MARTINEZ MD at 0846 CC: [id number] DICTATION DATE: 09/01/16 1232 FLIGHT INSPECTOR: 09/01/16 1328 ADM IN [facility] [address] [facility]
--- NOTE | 2016-09-08 08:47 | OP ---
PATIENT NAME: SANDRA SCOTT MEDICAL RECORD: [id number] :45 LOCATION:D.M2 D.2130 ADMISSION DATE:08/31/16 SURGEON: MAJO MARTINEZ MD DATE OF OPERATION: 09/05/2016 PROCEDURES: 1. PTCA stent left circumflex. 2. Left heart catheterization. 3. Selective coronary angiography. 4. Left ventriculogram. PROCEDURE IN DETAIL: After informed consent was obtained and after a detailed explanation of risks, benefits as well as alternative therapies, the patient elected to proceed with angiogram and angioplasty. The right femoral area was prepped and draped in normal sterile fashion. The right femoral artery was cannulated via modified Seldinger technique with placement of 6-Maltese sheath. All catheters exchanged through this sheath. FINDINGS: Left ventriculogram was performed in standard 30-degree WEAVER view, reveals good cardiac wall motion throughout all segments. Overall ejection fraction 65%. SELECTIVE CORONARY ANGIOGRAPHY: 1. Right coronary has chronic total occlusion in the mid distal vessel. Distal right coronary fills via left to right collaterals. 2. Left circumflex has 80+ percent stenosis in the mid vessel. 3. The left anterior descending has 80% to 90% stenosis in the proximal vessel. PTCA STENT OF THE LEFT CIRCUMFLEX: The stent used was a 3.5 x 15-mm Integrity. Result was 0% residual stenosis. OVERALL IMPRESSION: Successful percutaneous transluminal coronary angioplasty stent of the left circumflex going from 80+ percent initial stenosis. PLAN: PTCA stent of the LAD in the near future. TRANSINT:[id number] Voice Confirmation ID: [id number] DOCUMENT ID: [id number] MAJO MARTINEZ MD at 0847 CC: [id number] DICTATION DATE: 09/05/16 1315 GLOBAL HEAD ADVERTISER SOLUTIONS: 09/05/16 1604 [place] [address]
--- NOTE | 2016-09-08 08:47 | OP ---
PATIENT NAME: SANDRA SCOTT MEDICAL RECORD: [id number] :45 LOCATION:D.M2 D.2130 ADMISSION DATE:08/31/16 SURGEON: MAJO MARTINEZ MD DATE OF OPERATION: 09/06/2016 PROCEDURES: 1. PTCA stent to LAD. 2. Selective coronary angiography. INDICATIONS: Angina and coronary artery disease. PROCEDURE IN DETAIL: After informed consent was obtained and after detailed explanation of risks, benefits as well as alternative therapies, the patient elected to proceed with angiogram and angioplasty. The left femoral area was prepped and draped in normal sterile fashion. The left femoral artery was cannulated via modified Seldinger technique with placement of 6-Greek sheath. All catheters exchanged through this sheath. FINDINGS: The left anterior descending has multiple areas of 80%-90% stenosis in the mid vessel. This was covered with a 2.5 x 26 mm Integrity stent. Result was 0% residual stenosis. OVERALL IMPRESSION: Successful percutaneous transluminal coronary angioplasty stent of the left anterior descending going from 80+ percent initial stenosis to 0% residual. TRANSINT:[id number] Voice Confirmation ID: [id number] DOCUMENT ID: [id number] MAJO MARTINEZ MD at 0847 CC: [id number] DICTATION DATE: 09/06/16 1127 LABOR CONCILIATOR: 09/06/16 1407 [place] [address]
[2016-09-08 08:49] VITALS: BP 161/76
--- NOTE | 2016-09-08 09:40 | NUR ---
REPLACED PHOSPHATE PER EP. PHOSPHATE LEVEL 2.1 THIS AM. PT WILL RECIEVE 1PKT Q4H X3 DOSES. THIS IS 07/18.
--- NOTE | 2016-09-08 11:46 | NUR ---
FSBS 258. PT REC'D 16 UNITS PER SS INSULIN. PT IS SITTING UP IN BED RESTING QUIETLY WATCHING TV. PT IS HOPING TO BE DISCHARGED TODAY. FABIAN LOUISE APN IS AT BEDSIDE. WILL CPOC.
--- NOTE | 2016-09-08 12:26 | NUR ---
INITIATED DOSE 2/3 OF PHOSPHATE EP REPLACEMENT, MIXED WITH APPLE JUICE. PT RESTING EATING LUNCH, DENIES ANY CURRENT NEEDS. CL IN REACH. WILL CPOC.
[2016-09-08 12:43] VITALS: BP 165/68
[2016-09-08] MEDS ORDERED: PLAVIX75 MG PO (13:35)
[2016-09-08] MEDS ORDERED: LOPRESSOR25 MG PO (13:36)
[2016-09-08] MEDS ORDERED: ASPIRIN EC81 M1 PO (13:37)
[2016-09-08] MEDS ORDERED: BENZONATATE200 MG PO (13:38)
[2016-09-08] MEDS ORDERED: PROTONIX40 MG PO (13:52)
[2016-09-08] MEDS ORDERED: MUCINEX DM ER1 EAC1 PO (13:55)
[2016-09-08] MEDS ORDERED: HUMALOG 30100 UNITS/ SC ×2 (14:03→14:04)
[2016-09-08 17:19] VITALS: BP 161/65
--- NOTE | 2016-09-08 17:21 | NUR ---
D/C R.UPPER ARM PIV WITH CATHETER TIP FULLY INTACT. REMOVED TELEMETRY. DISCHARGE INSTRUCTIONS PROVIDED AND TEACHING COMPLETED. PAPERS SIGNED AND OBTAINED IN CHART. PATIENT BELONGINGS COLLECTED AND LEAVING WITH FAMILY NOW.
== END 2016-09-08 17:24 | disposition home health service (06) | DRG 246 ==
LOC: D.ER 12:29 → OBSVTIME 17:20 → D.M2 17:20
PROVIDERS: Emergency Medicine; Internal Medicine Interventional Cardiology; Internal Medicine Pulmonary Disease; ADMIT Family Medicine
PROC: B2111ZZ Fluoroscopy of Multiple Coronary Arteries using Low Osmolar Contrast (ICD-10-PCS; 2016-09-05)
PROC: B2151ZZ Fluoroscopy of Left Heart using Low Osmolar Contrast (ICD-10-PCS; 2016-09-05)
PROC: 02703DZ Dilation of Coronary Artery, One Artery with Intraluminal Device, Percutaneous Approach (ICD-10-PCS; principal; 2016-09-05 13:00)
PROC: 4A023N7 Measurement of Cardiac Sampling and Pressure, Left Heart, Percutaneous Approach (ICD-10-PCS; 2016-09-05 13:00)
PROC: 027034Z Dilation of Coronary Artery, One Artery with Drug-eluting Intraluminal Device, Percutaneous Approach (ICD-10-PCS; 2016-09-06)
DX: I21.4 Non-ST elevation (NSTEMI) myocardial infarction (principal); R53.2 Functional quadriplegia; I13.0 Hypertensive heart and chronic kidney disease with heart failure and stage 1 through stage 4 chronic kidney disease, or unspecified chronic kidney disease; I50.30 Unspecified diastolic (congestive) heart failure; N17.9 Acute kidney failure, unspecified; N39.0 Urinary tract infection, site not specified; J20.9 Acute bronchitis, unspecified; J30.9 Allergic rhinitis, unspecified; E11.22 Type 2 diabetes mellitus with diabetic chronic kidney disease; Z79.4 Long term (current) use of insulin; E86.9 Volume depletion, unspecified; I16.0 Hypertensive urgency; E78.5 Hyperlipidemia, unspecified; I27.2 Other secondary pulmonary hypertension; E11.21 Type 2 diabetes mellitus with diabetic nephropathy; N18.2 Chronic kidney disease, stage 2 (mild)

== ENCOUNTER → 2016-10-10 11:25 | Outpatient (CLI) | payer MEDICARE ==
[2016-08-31 12:25] VITALS: BMI 23.1
[~2016-10-10 11:25] MED LIST changes: +ASPIRIN EC81 M1 PO; +BENZONATATE200 MG PO; +LOPRESSOR25 MG PO; +MUCINEX DM ER1 EAC1 PO; +PLAVIX75 MG PO; +PROTONIX40 MG PO
== END | disposition home or self-care (01) ==
LOC: D.RAD 10-03 11:00
DX: J40 Bronchitis, not specified as acute or chronic (principal)

== ENCOUNTER 2017-03-13 08:27 | Inpatient (IN) | payer MEDICARE ==
[~2017-03-13] VITALS: Ht 167.6 cm; Wt 107.0 kg
[2017-03-13 08:51] LABS: HEMATOCRIT 43.9 % (36.0-48.0); HEMOGLOBIN 14.8 g/dL (12-16); MCHC 33.7 g/dL (31.0-37.0); PLATELET COUNT 370 10x3/uL (130-400); RBC 4.77 10x6/uL (4.00-5.40); RDW 13.7 % (11.5-14.5); WBC 28.2 10x3/uL (4.8-10.8)
[2017-03-13 09:08] LABS: ALBUMIN 3.6 g/dL (3.4-5.0); ANION GAP 20.7 mmol/L (8-16); BILIRUBIN - TOTAL 0.7 mg/dL (0.2-1.3); CALCIUM 9.6 mg/dL (8.5-10.1); CARBON DIOXIDE 19.4 mmol/L (21.0-32.0); CREATININE - SERUM 1.2 mg/dL (0.6-1.3); POTASSIUM - SERUM 3.1 mmol/L (3.5-5.1); PROTEIN - SERUM 7.6 g/dL (6.4-8.2)
[2017-03-13 09:14] LABS: TROPONIN-I 0.049 ng/mL (0.000-0.060)
[2017-03-13 09:43] LABS: BASOPHILS 2 % (0-2); LYMPHOCYTES 4 % (15-50); MONOCYTES 11 % (2-11); NEUTROPHILS 62 % (40-80); PLATELET ESTIMATE NORMAL
[2017-03-13 10:22] LABS: APPEARANCE TURBID (CLEAR); BACTERIA MANY /hpf (NONE SEEN); BILIRUBIN NEGATIVE (NEGATIVE); COLOR YELLOW (YELLOW); EPITHELIAL CELLS 0-5 /hpf (0-5); GLUCOSE NEGATIVE (NEGATIVE); KETONE SMALL mg/dL (NEGATIVE); LEUKOCYTE ESTERASE 2+ (NEGATIVE); NITRITE NEGATIVE (NEGATIVE); PROTEIN 3+ mg/dL (NEGATIVE); UROBILINOGEN NORMAL (NORMAL); WHITE CELLS - URINE >50 /hpf (0-5)
[2017-03-13 10:24] LABS: MUCUS <1+ /lpf (NONE SEEN)
[2017-03-13 12:00] VITALS: BP 155/86
[2017-03-13 12:54] VITALS: BP 153/78; BMI 25.4
[2017-03-13] MEDS ORDERED: MAG-OX 400 MG400 MG PO (13:10)
[2017-03-13 16:00] VITALS: BP 149/83
[2017-03-13 19:00] VITALS: BP 154/76
[2017-03-14] VITALS: BP 133/52
[2017-03-14 04:00] VITALS: BP 158/68
[2017-03-14 05:52] LABS: BASOPHILS 0.2 % (0-2); EOSINOPHILS 0.3 % (0-7); HEMATOCRIT 37.9 % (36.0-48.0); HEMOGLOBIN 12.9 g/dL (12-16); IMMATURE GRANULOCYTES 0.2 % (0-5); LYMPHOCYTES 16.5 % (15-50); MCH 30.7 pg (26.0-34.0); MCV 90.2 fL (80.0-100.0); MEAN PLATELET VOLUME 10.8 fL (7.4-10.4); NEUTROPHILS 74.8 % (40-80); PLATELET COUNT 299 10x3/uL (130-400); RDW 14.1 % (11.5-14.5)
[2017-03-14 06:09] LABS: ANION GAP 17.7 mmol/L (8-16); CALCIUM 9.7 mg/dL (8.5-10.1); CARBON DIOXIDE 23.2 mmol/L (21.0-32.0); CREATININE - SERUM 1.3 mg/dL (0.6-1.3); MAGNESIUM - SERUM 1.7 mg/dL (1.8-2.4)
[2017-03-14 06:19] LABS: WBC 12.6 10x3/uL (4.8-10.8)
[2017-03-14 06:22] LABS: POTASSIUM - SERUM 3.9 mmol/L (3.5-5.1)
[2017-03-14 08:29] VITALS: BP 162/75
[2017-03-14 09:26] VITALS: Ht 167.6 cm; Wt 107.0 kg
[2017-03-14 11:35] VITALS: BP 139/52
[2017-03-14 15:29] VITALS: BP 119/54
[2017-03-14 19:00] VITALS: BP 127/58
[2017-03-15] VITALS: BP 116/93
[2017-03-15 04:00] VITALS: BP 130/51
[2017-03-15 04:56] LABS: BASOPHILS 0.2 % (0-2); EOSINOPHILS 0.2 % (0-7); HEMATOCRIT 37.6 % (36.0-48.0); HEMOGLOBIN 12.7 g/dL (12-16); IMMATURE GRANULOCYTES 0.4 % (0-5); LYMPHOCYTES 14.4 % (15-50); MCH 30.3 pg (26.0-34.0); MCHC 33.8 g/dL (31.0-37.0); MCV 89.7 fL (80.0-100.0); MEAN PLATELET VOLUME 10.8 fL (7.4-10.4); MONOCYTES 7.5 % (2-11); NEUTROPHILS 77.3 % (40-80); PLATELET COUNT 234 10x3/uL (130-400); RBC 4.19 10x6/uL (4.00-5.40); RDW 14.1 % (11.5-14.5); WBC 11.2 10x3/uL (4.8-10.8)
[2017-03-15 05:12] LABS: ANION GAP 14.8 mmol/L (8-16); CALCIUM 9.3 mg/dL (8.5-10.1); CREATININE - SERUM 1.5 mg/dL (0.6-1.3); MAGNESIUM - SERUM 1.9 mg/dL (1.8-2.4); POTASSIUM - SERUM 3.8 mmol/L (3.5-5.1)
[2017-03-15 09:12] VITALS: BP 107/55
[2017-03-15 11:33] VITALS: BP 97/64
[2017-03-15 16:13] VITALS: BP 158/83
[2017-03-15 19:00] VITALS: BP 130/67
[2017-03-16] VITALS: BP 132/96
[2017-03-16 04:00] VITALS: BP 146/60
[2017-03-16 05:29] LABS: BASOPHILS 0.2 % (0-2); EOSINOPHILS 0.5 % (0-7); HEMATOCRIT 34.5 % (36.0-48.0); HEMOGLOBIN 11.9 g/dL (12-16); LYMPHOCYTES 12.1 % (15-50); MCH 30.8 pg (26.0-34.0); MCHC 34.5 g/dL (31.0-37.0); MCV 89.4 fL (80.0-100.0); MEAN PLATELET VOLUME 11.2 fL (7.4-10.4); NEUTROPHILS 79.2 % (40-80); PLATELET COUNT 239 10x3/uL (130-400); RBC 3.86 10x6/uL (4.00-5.40); WBC 13.1 10x3/uL (4.8-10.8)
[2017-03-16 05:50] LABS: APTT 22.2 SECONDS (22.8-39.4); INR 1.19 (0.85-1.17)
[2017-03-16 05:53] LABS: ANION GAP 12.8 mmol/L (8-16); CARBON DIOXIDE 27.2 mmol/L (21.0-32.0); CREATININE - SERUM 1.4 mg/dL (0.6-1.3); MAGNESIUM - SERUM 1.8 mg/dL (1.8-2.4)
[2017-03-16 07:59] VITALS: BP 164/75
[2017-03-16 11:52] VITALS: BP 167/78
[2017-03-16 12:23] LABS: CALC OSMOLALITY 281 mosm/kg (275-300); CALCIUM 8.9 mg/dL (8.5-10.1); CHLORIDE - SERUM 100 mmol/L (98-107); CREATININE - SERUM 1.3 mg/dL (0.6-1.3); GLUCOSE 137 mg/dL (74-106); MAGNESIUM - SERUM 1.9 mg/dL (1.8-2.4); POTASSIUM - SERUM 3.2 mmol/L (3.5-5.1); SODIUM 136 mmol/L (136-145); TROPONIN-I < 0.017 ng/mL (0.000-0.060); UREA NITROGEN 35 mg/dL (7-18); eGFR NON AFRICAN AMERICAN 43 mL/min (90-120)
--- NOTE | 2017-03-16 13:52 | EC ---
PATIENT:SANDRA SCOTT DATE OF SERVICE: 03/13/17 SEX: F MEDICAL RECORD: [id number] DATE OF : 45 LOCATION:D.M2 D.211 AGE OF PATIENT: 71 ADMISSION DATE: 03/13/17 REFERRING PHYSICIAN: INTERPRETING PHYSICIAN: MAJO CHAVEZ MD ECHOCARDIOGRAM REPORT ECHO CHARGES 4 ECHO COMPLETE CLINICAL DIAGNOSIS: SOB HX OF CAD/STENTS ECHOCARDIOGRAPHIC MEASUREMENTS (adult normal given) AC root (d.<3.7cm) cm LV Septum d (<1.2 cm> cm Valve Excursion cm LV Septum (systole) cm Left Atria (s.<4.0cm> 3.2 cm LVPW d(<1.2cm) cm RV (d.<2.3cm) 4.5 cm LVPW (sytole) cm LV diastole(<5.6CM) 3.5 cm MV E-F(>70mm/sec) cm LV systole 2.6 cm LVOT Diameter 1.5 cm MV exc.(>10mm) cm Est.ejection fraction (50-75%) % Pericardial Effusion N DOPPLER: LVIT cm/sec A 112 cm/sec E 42.0 cm/sec LA cm/sec RVSP 32 mmHg LVOT 101 cm/sec AOP1/2T m/s Asc. Ao 151 cm/sec RVOT cm/sec RA cm/sec PA cm/sec AV Gradient Peak 9.10 mmHg AV Mean 5.37 mmHg AV Area 1.2 cm MV Gradient Peak mmHg MV Mean mmHg MV Area cm COMMENTS: Hoop Machine Operator: Eufemia BERTRAND Clothing Consultant: Anai Chavez TAPE# PACS DATE OF SERVICE: 03/13/2017 Echocardiogram FINDINGS: 1. Left ventricular chamber size is within normal limits. Left ventricular systolic function is normal. Overall ejection fraction estimated at 55%. 2. Left atrium, right atrium, and right ventricular chamber sizes are within normal limits. 3. Valvular structures have normal structure and motion. ECHOCARDIOGRAM REPORT [id number] SANDRA SCOTT 4. Doppler interrogation reveals only mild mitral regurgitation and mild tricuspid regurgitation, no other valvular insufficiency or stenosis and pulmonary systolic pressure is estimated at 32 mmHg. 5. No evidence of pericardial effusion or left ventricular thrombus. TRANSINT:[id number] Voice Confirmation ID: [id number] DOCUMENT ID: [id number] MAJO CHAVEZ MD at 1352 CC: [id number] DICTATION DATE: 03/13/17 1239 MANAGER HARDWARE: 03/13/17 192 ADM IN [place] [id number] [place] [id number]
--- NOTE | 2017-03-16 13:52 | CN ---
PATIENT NAME:SANDRA SCOTT MEDICAL RECORD: [id number] : 45 LOCATION:[facility] D.2114 ADMIT DATE: 03/13/17 ACCOUNT: [id number] CONSULTING PHYSICIAN: MAJO MARTINEZ MD REFERRING PHYSICIAN: NANNETTE WOMACK M.D. DATE OF CONSULTATION: 03/13/2017 ADMITTING DIAGNOSES: 1. Pneumonia. 2. Shortness of breath. 3. Coronary artery disease. 4. Previous percutaneous transluminal coronary angioplasty stent. 5. Hypertension. 6. Hyperlipidemia. HISTORY OF PRESENT ILLNESS: Mrs. Scott presents with progressive shortness of breath. She is not having any chest pain or chest discomfort compatible with angina. She does have a productive cough. Her troponin is normal. Her EKG is with no ST-T abnormalities. PHYSICAL EXAMINATION: GENERAL APPEARANCE: Well-nourished, well-developed, appears stated age. Level of distress, comfortable. PSYCHIATRIC: Mental status, alert, normal affect. Orientation, oriented to time, place and person. EYES: Lids and conjunctiva, noninjected. No discharge, no pallor. ENT: Lips, teeth, gums, normal dentition. Oropharynx, no cyanosis, no pallor. NECK: Carotid arteries, bilateral normal upstroke, no bruits, no thrills. JUGULAR VEINS: No jugular venous pressure or distention. CERVICAL LYMPH NODES: Nontender, nonenlarged. THYROID: Not enlarged. Nontender. No nodules. LUNGS: Respiratory effort, unlabored. CHEST: Normal curvature. No thoracic deformity. No chest wall tenderness. Percussion, resonant. Auscultation, clear. No wheezes, no rales, no rhonchi. CARDIOVASCULAR: Precordial exam, nondisplaced. No heaves or pericardial thrills. Rate and rhythm, regular. Heart sounds, normal S1, normal S2. No S3, no gallop, no rub. Systolic murmur, not heard. Diastolic murmur, not heard. EXTREMITIES: No cyanosis, no edema. Peripheral pulses, full and equal in all extremities, except as noted. No bruits appreciated. ABDOMEN: Soft, nondistended. Normal aorta. No bruit. Nontender. No masses. Liver, nontender, no hepatomegaly. Spleen, nontender, no splenomegaly. MUSCULOSKELETAL: No joint tenderness. No joint swelling. No erythema. NEUROLOGICAL: Normal gait, normal strength, normal tone. SKIN: Warm and dry. REVIEW OF SYSTEMS: The patient reports easy bruising but reports no swollen glands. The patient reports no fever, no night sweats, no significant weight gain, no significant weight loss. No significant exercise tolerance. The patient reports no dry eyes, no irritation, no vision change. Patient reports no difficulty hearing and no ear pain. Patient reports no frequent nose bleeds or nose and sinus problems. Patient reports on arm pain on exertion. No shortness of breath while lying down. No history of heart murmur. Patient reports no cough, no wheezing or coughing up blood. Patient reports no abdominal pain, no vomiting. Normal appetite. No diarrhea and not vomiting blood. No nausea and no constipation. Patient reports no incontinence. No CONSULT REPORT [id number] SANDRA SCOTT difficulty urinating. No hematuria. No increased frequency. Patient reports no muscle aches. No weakness, no arthralgias, no back pain. No swelling of the extremities. Patient reports no abnormal mole, no jaundice, no rashes. Reports no loss of consciousness. No weakness and no numbness. No seizures, dizziness, or headaches. The patient reports no depression, no sleep disturbance, feeling safe in a relationship and no alcohol abuse. Patient reports on fatigue. Reports no runny nose or sinus pressure. No itching, no hives, and no frequent sneezing. OVERALL IMPRESSION: Most likely, this is noncardiac in etiology. Most likely, this is pneumonia. We will get an echocardiogram to evaluate her LV function which has been normal in the past. Further care depends upon her clinical course with IV antibiotics as well as diuretics to treat the pneumonia and concomitant pulmonary edema. TRANSINT:[id number] Voice Confirmation ID: [id number] DOCUMENT ID: [id number] MAJO MARTINEZ MD at 1352 CC: [id number] DICTATION DATE: 03/13/17 1142 RISK AND INSURANCE CONSULTANT: 03/13/17 1827 [place] [address]
[2017-03-16 16:12] VITALS: BP 110/57
[2017-03-16 19:00] VITALS: BP 148/61
[2017-03-17] VITALS: BP 147/59
[2017-03-17 04:00] VITALS: BP 186/60
[2017-03-17 05:59] LABS: BASOPHILS 0.2 % (0-2); EOSINOPHILS 2.3 % (0-7); HEMATOCRIT 33.9 % (36.0-48.0); HEMOGLOBIN 11.2 g/dL (12-16); IMMATURE GRANULOCYTES 0.5 % (0-5); LYMPHOCYTES 11.5 % (15-50); MCH 30.1 pg (26.0-34.0); MCV 91.1 fL (80.0-100.0); MEAN PLATELET VOLUME 11.2 fL (7.4-10.4); MONOCYTES 8.5 % (2-11); PLATELET COUNT 279 10x3/uL (130-400); RBC 3.72 10x6/uL (4.00-5.40); WBC 13.2 10x3/uL (4.8-10.8)
[2017-03-17 06:21] LABS: CALC OSMOLALITY 279 mosm/kg (275-300); CHLORIDE - SERUM 100 mmol/L (98-107); CREATININE - SERUM 1.3 mg/dL (0.6-1.3); GLUCOSE 105 mg/dL (74-106); MAGNESIUM - SERUM 1.8 mg/dL (1.8-2.4); SODIUM 136 mmol/L (136-145); THYROID STIMULATING HORMONE 0.12 uIU/mL (0.36-3.74); UREA NITROGEN 34 mg/dL (7-18); eGFR NON AFRICAN AMERICAN 43 mL/min (90-120)
[2017-03-17 06:23] LABS: CARBON DIOXIDE 27.6 mmol/L (21.0-32.0); POTASSIUM - SERUM 3.4 mmol/L (3.5-5.1); TROPONIN-I < 0.017 ng/mL (0.000-0.060)
[2017-03-17 08:38] VITALS: BP 199/76
[2017-03-17 12:54] VITALS: BP 158/62
[2017-03-17 16:37] VITALS: BP 171/76
[2017-03-17 19:00] VITALS: BP 129/72
[2017-03-18] VITALS: BP 112/61
[2017-03-18 04:00] VITALS: BP 109/70
[2017-03-18 05:24] LABS: BASOPHILS 0.2 % (0-2); EOSINOPHILS 2.8 % (0-7); HEMATOCRIT 32.9 % (36.0-48.0); HEMOGLOBIN 11.1 g/dL (12-16); IMMATURE GRANULOCYTES 0.7 % (0-5); LYMPHOCYTES 16.9 % (15-50); MCH 30.4 pg (26.0-34.0); MCHC 33.7 g/dL (31.0-37.0); MCV 90.1 fL (80.0-100.0); MONOCYTES 11.4 % (2-11); PLATELET COUNT 280 10x3/uL (130-400); RBC 3.65 10x6/uL (4.00-5.40); RDW 13.5 % (11.5-14.5); WBC 10.2 10x3/uL (4.8-10.8)
[2017-03-18 05:41] LABS: APTT 31.8 SECONDS (22.8-39.4); INR 1.09 (0.85-1.17)
[2017-03-18 05:52] LABS: ANION GAP 11.2 mmol/L (8-16); CALCIUM 8.5 mg/dL (8.5-10.1); CARBON DIOXIDE 28.9 mmol/L (21.0-32.0); CREATININE - SERUM 1.1 mg/dL (0.6-1.3); MAGNESIUM - SERUM 1.8 mg/dL (1.8-2.4); POTASSIUM - SERUM 3.1 mmol/L (3.5-5.1); PROTEIN - SERUM 6.9 g/dL (6.4-8.2)
[2017-03-18 08:58] VITALS: BP 190/74
[2017-03-18 11:53] VITALS: BP 141/74
[2017-03-18 12:32] LABS: LYMPH - BF 62 %; NEUT - BF 38 %
[2017-03-18 16:50] VITALS: BP 199/74
[2017-03-18 20:00] VITALS: BP 183/80
[2017-03-19 00:18] VITALS: BP 173/70
[2017-03-19 04:00] VITALS: BP 143/79
[2017-03-19 05:37] LABS: BASOPHILS 0.4 % (0-2); EOSINOPHILS 1.9 % (0-7); HEMATOCRIT 35.3 % (36.0-48.0); HEMOGLOBIN 11.8 g/dL (12-16); IMMATURE GRANULOCYTES 0.6 % (0-5); LYMPHOCYTES 13.2 % (15-50); MCH 30.3 pg (26.0-34.0); MCHC 33.4 g/dL (31.0-37.0); MCV 90.5 fL (80.0-100.0); MEAN PLATELET VOLUME 10.8 fL (7.4-10.4); MONOCYTES 9.4 % (2-11); NEUTROPHILS 74.5 % (40-80); PLATELET COUNT 290 10x3/uL (130-400); RDW 13.7 % (11.5-14.5); WBC 11.2 10x3/uL (4.8-10.8)
[2017-03-19 05:58] LABS: ANION GAP 12.7 mmol/L (8-16); CALCIUM 9.2 mg/dL (8.5-10.1); CREATININE - SERUM 1.1 mg/dL (0.6-1.3); POTASSIUM - SERUM 3.7 mmol/L (3.5-5.1)
[2017-03-19 08:00] VITALS: BP 178/66
[2017-03-19 12:00] VITALS: BP 150/60
[2017-03-19 16:00] VITALS: BP 166/68
[2017-03-19 21:15] VITALS: BP 157/63
[2017-03-20 01:29] VITALS: BP 128/50
[2017-03-20 04:36] VITALS: BP 150/61
[2017-03-20 08:00] VITALS: BP 151/56
[2017-03-20 12:00] VITALS: BP 126/45
[2017-03-20 16:00] VITALS: BP 109/40
[2017-03-20 19:00] VITALS: BP 146/56
[2017-03-21 00:46] VITALS: BP 151/67
[2017-03-21 05:12] VITALS: BP 163/64
[2017-03-21 05:33] LABS: BASOPHILS 0.3 % (0-2); EOSINOPHILS 3.2 % (0-7); HEMATOCRIT 28.7 % (36.0-48.0); HEMOGLOBIN 9.6 g/dL (12-16); IMMATURE GRANULOCYTES 0.7 % (0-5); LYMPHOCYTES 16.7 % (15-50); MCH 30.2 pg (26.0-34.0); MCHC 33.4 g/dL (31.0-37.0); MCV 90.3 fL (80.0-100.0); MEAN PLATELET VOLUME 10.2 fL (7.4-10.4); MONOCYTES 7.6 % (2-11); NEUTROPHILS 71.5 % (40-80); PLATELET COUNT 321 10x3/uL (130-400); RBC 3.18 10x6/uL (4.00-5.40); RDW 13.5 % (11.5-14.5); WBC 10.3 10x3/uL (4.8-10.8)
[2017-03-21 06:25] LABS: ANION GAP 12.9 mmol/L (8-16); CALCIUM 8.7 mg/dL (8.5-10.1); CARBON DIOXIDE 27.8 mmol/L (21.0-32.0); POTASSIUM - SERUM 3.7 mmol/L (3.5-5.1)
[2017-03-21 08:14] VITALS: BP 159/72
[2017-03-21 12:05] VITALS: BP 156/58
[2017-03-21 14:19] LABS: FUNGUS STAIN Final report (())
[2017-03-21 16:00] VITALS: BP 175/69
[2017-03-21 19:00] VITALS: BP 163/60
[2017-03-21 19:11] LABS: ACID FAST SMEAR Negative (()); AFB SPECIMEN PROCESSING Concentration (())
[2017-03-22 01:15] VITALS: BP 118/61
[2017-03-22 05:45] LABS: BASOPHILS 0.1 % (0-2); EOSINOPHILS 2.1 % (0-7); HEMATOCRIT 29.2 % (36.0-48.0); HEMOGLOBIN 9.6 g/dL (12-16); IMMATURE GRANULOCYTES 0.5 % (0-5); LYMPHOCYTES 12.6 % (15-50); MCH 29.7 pg (26.0-34.0); MCHC 32.9 g/dL (31.0-37.0); MCV 90.4 fL (80.0-100.0); MEAN PLATELET VOLUME 9.5 fL (7.4-10.4); MONOCYTES 6.8 % (2-11); NEUTROPHILS 77.9 % (40-80); PLATELET COUNT 354 10x3/uL (130-400); RBC 3.23 10x6/uL (4.00-5.40); RDW 13.4 % (11.5-14.5); WBC 11.2 10x3/uL (4.8-10.8)
[2017-03-22 06:18] LABS: ANION GAP 15.2 mmol/L (8-16); CALCIUM 8.4 mg/dL (8.5-10.1); CARBON DIOXIDE 26.8 mmol/L (21.0-32.0); CREATININE - SERUM 0.9 mg/dL (0.6-1.3)
[2017-03-22 08:00] VITALS: BP 143/68
[2017-03-22 12:00] VITALS: BP 142/60
[2017-03-22 16:00] VITALS: BP 162/57
[2017-03-22 19:00] VITALS: BP 134/71
[2017-03-23] VITALS: BP 153/53
[2017-03-23 04:00] VITALS: BP 171/66
[2017-03-23 05:34] LABS: BASOPHILS 0.2 % (0-2); EOSINOPHILS 1.6 % (0-7); HEMATOCRIT 28.8 % (36.0-48.0); HEMOGLOBIN 9.6 g/dL (12-16); IMMATURE GRANULOCYTES 0.4 % (0-5); LYMPHOCYTES 16.1 % (15-50); MCHC 33.3 g/dL (31.0-37.0); MEAN PLATELET VOLUME 10.2 fL (7.4-10.4); MONOCYTES 8.4 % (2-11); NEUTROPHILS 73.3 % (40-80); PLATELET COUNT 438 10x3/uL (130-400); RDW 13.3 % (11.5-14.5); WBC 10.8 10x3/uL (4.8-10.8)
[2017-03-23 05:59] LABS: ANION GAP 14.9 mmol/L (8-16); CALCIUM 9.1 mg/dL (8.5-10.1); CARBON DIOXIDE 25.9 mmol/L (21.0-32.0); CREATININE - SERUM 0.9 mg/dL (0.6-1.3); POTASSIUM - SERUM 3.8 mmol/L (3.5-5.1)
[2017-03-23 08:00] VITALS: BP 158/73
== END 2017-03-23 13:07 | DRG 177 ==
LOC: D.ER 08:27 → D.M2 10:44 → D.SDCHOLD 03-15 15:25 → D.M2 03-15 15:27
PROVIDERS: Emergency Medicine; Internal Medicine Pulmonary Disease; Radiology Diagnostic Radiology; ADMIT Family Medicine
PROC: 0W9930Z Drainage of Right Pleural Cavity with Drainage Device, Percutaneous Approach (ICD-10-PCS; principal; 2017-03-18 10:00)
DX: J69.0 Pneumonitis due to inhalation of food and vomit (principal); R53.2 Functional quadriplegia; N39.0 Urinary tract infection, site not specified; I13.0 Hypertensive heart and chronic kidney disease with heart failure and stage 1 through stage 4 chronic kidney disease, or unspecified chronic kidney disease; I50.32 Chronic diastolic (congestive) heart failure; I25.10 Atherosclerotic heart disease of native coronary artery without angina pectoris; E78.5 Hyperlipidemia, unspecified; I48.91 Unspecified atrial fibrillation; E11.65 Type 2 diabetes mellitus with hyperglycemia; I08.1 Rheumatic disorders of both mitral and tricuspid valves; I73.9 Peripheral vascular disease, unspecified; I27.2 Other secondary pulmonary hypertension; E87.6 Hypokalemia; N18.2 Chronic kidney disease, stage 2 (mild); E11.22 Type 2 diabetes mellitus with diabetic chronic kidney disease; T17.990A Other foreign object in respiratory tract, part unspecified in causing asphyxiation, initial encounter; X58.XXXA Exposure to other specified factors, initial encounter; I25.2 Old myocardial infarction; Z95.5 Presence of coronary angioplasty implant and graft